=== PATIENT | female | born 1970 | race Caucasian/White ===

== ENCOUNTER 2023-09-26 11:31 | Inpatient (IN) | payer BC ==
--- OUTSIDE RECORDS SUMMARY | 2023-09-26 11:35 | XMS REPORT | Continuity of Care Document ---
Author Name Unknown Address [address] [place] [address] thconnect Address [address] [place] [address] [place] [id number] Care Team Providers Care Publisher Assistant Name Role Phone [email or web address] Attending Clinician Unavaila ble [email or web address] Admitting Clinician Unavaila ble Encounters Start Date/Time End Date/Time Encounter Type Admission Type Attending Clinicians Care Facility Care Department Encounter ID Source 2023-07-31 00:00:00 2023-07-31 00:00:00 Outpatient [email or web address] [facility] [id number] [facility]
[2023-09-26] MEDS ORDERED: VANCOMYCIN 1 GM/VIAL ONE (12:08)
[2023-09-26] MEDS ORDERED: CEFEPIME 2 GM VIAL ONE (12:09)
[2023-09-26] MEDS ORDERED: NA CHLORIDE 0.9% 100 ML ONE (12:09)
[2023-09-26] MEDS ORDERED: NA CHLORIDE 0.9% 250 ML ONE (12:09)
[2023-09-26 12:14] LABS: Absolute Lymphocytes (CBC) 2.1 K/uL (0.7-4.9); Hematocrit 37.3 % (36.0-45.0); Lymphocytes % 19.7 % (15.3-44.8); MCV 80.4 fL (80-100); MPV 7.6 fL (7.6-11.3); Platelets 224 thou/uL (152-406); RBC Red Blood Cell Count 4.64 M/uL (3.86-4.86)
[2023-09-26 12:33] LABS: Albumin 3.1 g/dL (3.4-5.0); Bilirubin Total 0.5 mg/dL (0.2-1.0); Potassium 3.8 mEq/L (3.5-5.1); Protein, Total 7.6 g/dL (6.4-8.2)
--- NOTE | 2023-09-26 14:47 | RAD REPORT ---
EXAM DESCRIPTION: RAD - Foot Right 3 View - 09/26/2023 1:09 pm CLINICAL HISTORY: diabetic wound COMPARISON: No comparisons TECHNIQUE: Right foot, 3 views. FINDINGS: Soft tissue swelling and locules of gas along the first interdigital web, and along the so ft tissues of the second digit. No fracture, osseous lucencies, dislocation or periosteal reaction. Osseous remodeling with well alcira icated margins at the tuft of the first digit distal phalanx, could be of chronic nature. Moderate calcaneal spur. [id number] midfoot degenerative changes. No air or foreign body in the soft tissues. IMPRESSION: Soft tissue swelling and gas centered around the second digit as above concerning for ce llulitis. No adjacent osseous lucencies are observed, however MRI of the foot would provide improved sensitivity for osteomyelitis evaluation if clinically indicated. Osseous remodeling with well corticated margins at the tuft of the first digit distal phalanx, could be of chronic nature.
--- NOTE | 2023-09-26 15:49 | ER ---
Nurse's Notes [facility] Name: Cami Vences Age: 53 yrs Sex: Female : 1970 Arrival Date: 09/26/2023 Time: 11:31 Bed 19 Private MD: Diagnosis: Cellulitis to right foot Presentation: 09/26 11:46 Chief complaint: Patient states: "I'VE BEEN SEEING DR SEO FOR MY TOE, BUT TODAY IT'S ll1 BLEEDING." SEEN BY PODIATRY WED, NOW WORSE. Coronavirus screen: At this time, the client does not indicate any symptoms associated with coronavirus-19. Ebola Screen: No symptoms or risks identified at this time. Initial Sepsis Screen: Does the patient meet any 2 criteria? No. Patient's initial sepsis screen is negative. Does the patient have a suspected source of infection? No. Patient's initial sepsis screen is negative. Risk Assessment: Do you want to hurt yourself or someone else? Patient reports no desire to harm self or others. Onset of symptoms is unknown. 11:46 Method Of Arrival: Wheelchair ll1 11:46 Acuity: BERTA 4 ll1 Triage Assessment: 11:46 General: Appears in no apparent distress. Behavior is calm, cooperative, appropriate ll1 for age. Pain: Complains of pain in right foot. Historical: - Allergies: 11:45 Clindamycin; ll1 11:45 Erythromycin; ll1 11:45 Lipitor; ll1 11:45 Naproxen; ll1 11:45 Voltaren; ll1 - PMHx: 11:45 Diabetes mellitus; Hypertensive disorder; Hypercholesterolemia; ll1 - Immunization history:: Adult Immunizations up to date. - Social history:: Smoking status: unknown. - Family history:: not pertinent. Screenin:15 [facility] ED Fall Risk Assessment (Adult) History of falling in the last 3 months, kc6 including since admission No falls in past 3 months (0 pts) Confusion or Disorientation No (0 pts) Intoxicated or Sedated No (0 pts) Impaired Gait Yes (1 pt) Mobility Assist Device Used No (0 pt) Altered Elimination No (0 pt) Score/Fall Risk Level 0 - 2 = Low Risk. Abuse screen: Denies threats or abuse. Denies injuries from another. Nutritional screening: No deficits noted. Tuberculosis screening: No symptoms or risk factors identified. Assessment: 12:16 General: Appears in no apparent distress. comfortable, well groomed, well developed, kc6 Behavior is calm, cooperative, appropriate for age. Pain: Denies pain. Neuro: Level of Consciousness is awake, alert, obeys commands, Oriented to person, place, time, situation, Appropriate for age. Cardiovascular: Capillary refill < 3 seconds. Respiratory: Airway is patent Trachea midline Respiratory effort is even, unlabored, Respiratory pattern is regular, symmetrical. GI: No signs and/or symptoms were reported involving the gastrointestinal system. : No signs and/or symptoms were reported regarding the genitourinary system. EENT: No signs and/or symptoms were reported regarding the EENT system. Derm: Skin is pink, warm \\T\\ dry. Wound noted. Musculoskeletal: No signs and/or symptoms reported regarding the musculoskeletal system. Circulation, motion, and sensation intact. Capillary refill < 3 seconds, Range of motion: intact in all extremities. 13:20 Reassessment: Patient appears in no apparent distress at this time. No changes from kc6 previously documented assessment. Patient and/or family updated on plan of care and expected duration. Pain level reassessed. Patient is alert, oriented x 3, equal unlabored respirations, skin warm/dry/pink. 14:24 Reassessment: Patient appears in no apparent distress at this time. No changes from kc6 previously documented assessment. Patient and/or family updated on plan of care and expected duration. Pain level reassessed. Patient is alert, oriented x 3, equal unlabored respirations, skin warm/dry/pink. 15:01 Reassessment: Patient appears in no apparent distress at this time. No changes from kc6 previously documented assessment. Patient and/or family updated on plan of care and expected duration. Pain level reassessed. Patient is alert, oriented x 3, equal unlabored respirations, skin warm/dry/pink. 15:48 Reassessment: Patient appears in no apparent distress at this time. No changes from kc6 previously documented assessment. Patient and/or family updated on plan of care and expected duration. Pain level reassessed. Patient is alert, oriented x 3, equal unlabored respirations, skin warm/dry/pink. 16:48 Reassessment: Patient appears in no apparent distress at this time. No changes from kc6 previously documented assessment. Patient and/or family updated on plan of care and expected duration. Pain level reassessed. Patient is alert, oriented x 3, equal unlabored respirations, skin warm/dry/pink. 23:44 Reassessment: 1st attempt at giving report to Roc PASTRANA. Unable to take report at this la4 time. Will call back for report in 5 minutes. Will await return call for report. Neuro:. Vital Signs: 11:46 BP 154 / 77; Pulse 84; Resp 16; Temp 97.9; Pulse Ox 97% ; ll1 13:20 BP 111 / 58; Pulse 75; Resp 16 S; Pulse Ox 98% on R/A; kc6 14:24 BP 124 / 61; Pulse 76; Resp 18 S; Pulse Ox 98% on R/A; kc6 15:01 BP 112 / 48; Pulse 73; Resp 19 S; Pulse Ox 98% on R/A; kc6 15:48 BP 128 / 67; Pulse 80; Resp 17 S; Pulse Ox 99% on R/A; kc6 17:10 BP 111 / 93; Pulse 83; Resp 16 S; Pulse Ox 99% on R/A; kc6 19:45 BP 125 / 71; Pulse 88; Resp 20; Pulse Ox 96% ; la4 20:00 BP 129 / 67; Pulse 98; Resp 20; Pulse Ox 100% on R/A; la4 20:45 BP 119 / 65; Pulse 86; Pulse Ox 95% ; la4 21:45 BP 114 / 53; Pulse 87; Pulse Ox 96% ; la4 22:45 BP 108 / 52; Pulse 87; Pulse Ox 98% ; la4 [place] Coma Score: 20:00 Eye Response: spontaneous(4). Motor Response: obeys commands(6). Verbal Response: la4 oriented(5). Total: 15. 22:45 Eye Response: spontaneous(4). Motor Response: obeys commands(6). Verbal Response: la4 oriented(5). Total: 15. ED Course: 11:34 Patient arrived in ED. ts1 11:35 Remy Edwards MD is Attending Physician. rt 11:46 Arm band placed on. ll1 11:47 Triage completed. ll1 11:58 Cindy Cabrajal, RN is Primary Nurse. kc6 12:15 CMP Sent. kc6 12:15 CBC with Diff Sent. kc6 12:15 Inserted saline lock: 20 gauge in right antecubital area, using aseptic technique. kc6 Blood collected. Patient maintains SpO2 saturation greater than 95% on room air. 12:16 Patient has correct armband on for positive identification. Bed in low position. Call kc6 light in reach. Side rails up X 1. Adult w/ patient. Client placed on continuous cardiac and pulse oximetry monitoring. NIBP monitoring applied. 13:11 Foot Right 3 View XRAY In Process Unspecified. EDMS 15:48 Aby Concepcion MD is Hospitalizing Provider. rt 17:10 No provider procedures requiring assistance completed. Patient admitted, IV remains in kc6 place. 23:06 IV discontinued, intact, bleeding controlled, No redness/swelling at site. Pressure kmf dressing applied. 23:44 Provided Education on: plan of care. la4 23:54 Inserted saline lock: 20 gauge in left hand, using aseptic technique. Blood collected. kmf Administered Medications: 12:15 Drug: Cefepime IVPB 2 grams IVPB at 200 ml/hr once over 30 mins; (mix in NS 100 mL) kc6 Route: IVPB; Rate: 200 ml/hr; Infused Over: 30 mins; Site: right antecubital; 12:51 Follow up: Response: No adverse reaction; IV Status: Completed infusion; IV Intake: kc6 100ml 12:57 Drug: vancoMYCIN IVPB 1 grams IVPB once over 2 hrs Route: IVPB; Infused Over: 2 hrs; kc6 Site: right antecubital; 15:05 Follow up: Response: No adverse reaction; IV Status: Completed infusion; IV Intake: kc6 250ml Medication: 17:10 VIS not applicable for this client. kc6 Intake: 12:51 IV: 100ml; Total: 100ml. kc6 15:05 IV: 250ml; Total: 350ml. kc6 Output: 20:00 Urine: 600ml (Voided); Total: 600ml. la4 Outcome: 15:49 Decision to Hospitalize by Provider. rt 17:10 Admitted to ER Hold. Please see [facility] for further documentation. kc6 17:10 Condition: good 17:10 Instructed on the need for admit, 23:59 Admitted to Tele room 225, Report called to Roc PASTRANA la4 23:59 Instructed on 09/27 00:45 Patient left the ED. la4 Signatures: Dispatcher [employer] EDRitesh Pop RN RN ll1 Cindy Carbajal RN RN kc6 Remy Edwards MD MD rt Simpson, Tanya, PAS PAS ts1 Gaye Malloy kmf Armin Stevens RN RN la4 Corrections: (The following items were deleted from the chart) 09/26 23:54 23:54 IV discontinued, intact, bleeding controlled, No redness/swelling at site. kmf Pressure dressing applied, kmf
--- NOTE | 2023-09-26 15:50 | EDPHYS ---
Physician Documentation [facility] Name: Cami Vences Age: 53 yrs Sex: Female : 1970 Arrival Date: 09/26/2023 Time: 11:31 Bed 19 Private MD: ED Physician Remy Edwards HPI: 09/26 13:22 This 53 yrs old Female presents to ER via Wheelchair with complaints of Infected toe. rt 13:22 Patient presents to the ED with a wound to the right foot, states that she has been rt having workup done by a senior principal software engineer, states that which woke up this morning, noticed redness to her foot as well as a blackness to the right third toe. This is new compared to yesterday. Denies other acute complaints, symptoms are moderate in severity, no other aggravating relieving factors.. Historical: - Allergies: 11:45 Clindamycin; ll1 11:45 Erythromycin; ll1 11:45 Lipitor; ll1 11:45 Naproxen; ll1 11:45 Voltaren; ll1 - PMHx: 11:45 Diabetes mellitus; Hypertensive disorder; Hypercholesterolemia; ll1 - Immunization history:: Adult Immunizations up to date. - Social history:: Smoking status: unknown. - Family history:: not pertinent. ROS: 13:22 Constitutional: Negative for fever, chills, and weight loss, Neck: Negative for injury, rt pain, and swelling, Cardiovascular: Negative for chest pain, palpitations, and edema, Respiratory: Negative for shortness of breath, cough, wheezing, and pleuritic chest pain, Abdomen/GI: Negative for abdominal pain, nausea, vomiting, diarrhea, and constipation, Neuro: Negative for headache, weakness, numbness, tingling, and seizure, Psych: Negative for depression, anxiety, suicide ideation, homicidal ideation, and hallucinations, 13:22 MS/extremity: Positive for Warmth, foot wound, 13:22 Skin: Positive for erythema, Wound, Exam: 13:22 Constitutional: This is a well developed, well nourished patient who is awake, alert, rt and in no acute distress. Head/Face: Normocephalic, atraumatic. Chest/axilla: Normal chest wall appearance and motion. Nontender with no deformity. No lesions are appreciated. Cardiovascular: Regular rate and rhythm with a normal S1 and S2. No gallops, murmurs, or rubs. Normal PMI, no JVD. No pulse deficits. Respiratory: Lungs have equal breath sounds bilaterally, clear to auscultation and percussion. No rales, rhonchi or wheezes noted. No increased work of breathing, no retractions or nasal flaring. Abdomen/GI: Soft, non-tender, with normal bowel sounds. No distension or tympany. No guarding or rebound. No evidence of tenderness throughout. Neuro: Awake and alert, GCS 15, oriented to person, place, time, and situation. Cranial nerves II-XII grossly intact. Motor strength 5/5 in all extremities. Sensory grossly intact. Cerebellar exam normal. Normal gait. 13:22 Musculoskeletal/extremity: Apparent dry gangrene to the right third toe, proximal erythema noted pulses are intact. Vital Signs: 11:46 BP 154 / 77; Pulse 84; Resp 16; Temp 97.9; Pulse Ox 97% ; ll1 13:20 BP 111 / 58; Pulse 75; Resp 16 S; Pulse Ox 98% on R/A; kc6 14:24 BP 124 / 61; Pulse 76; Resp 18 S; Pulse Ox 98% on R/A; kc6 15:01 BP 112 / 48; Pulse 73; Resp 19 S; Pulse Ox 98% on R/A; kc6 15:48 BP 128 / 67; Pulse 80; Resp 17 S; Pulse Ox 99% on R/A; kc6 17:10 BP 111 / 93; Pulse 83; Resp 16 S; Pulse Ox 99% on R/A; kc6 19:45 BP 125 / 71; Pulse 88; Resp 20; Pulse Ox 96% ; la4 20:00 BP 129 / 67; Pulse 98; Resp 20; Pulse Ox 100% on R/A; la4 20:45 BP 119 / 65; Pulse 86; Pulse Ox 95% ; la4 21:45 BP 114 / 53; Pulse 87; Pulse Ox 96% ; la4 22:45 BP 108 / 52; Pulse 87; Pulse Ox 98% ; la4 [place] Coma Score: 20:00 Eye Response: spontaneous(4). Motor Response: obeys commands(6). Verbal Response: la4 oriented(5). Total: 15. 22:45 Eye Response: spontaneous(4). Motor Response: obeys commands(6). Verbal Response: la4 oriented(5). Total: 15. MDM: 11:50 Patient medically screened. rt 17:50 Differential Diagnosis Cellulitis, osteomyelitis. Data reviewed: vital signs, nurses rt notes, lab test result(s), radiologic studies. Consideration of Admission/Observation Patient was admitted/placed on observation. Management of patient was discussed with the following: Hospitalist: Agrees to admit. I considered the following discharge prescriptions or medication management in the emergency department Medications were administered in the Emergency Department. See MAR. Independent interpretation of the following test(s) in the Emergency Department X-Ray: My interpretation is No fracture seen on interpretation of x-ray images. Care significantly affected by the following chronic conditions: Diabetes. Counseling: I had a detailed discussion with the patient and/or guardian regarding the historical points, exam findings, and any diagnostic results supporting the discharge/admit diagnosis, lab results, radiology results, the need for further work-up and treatment in the hospital. Response to treatment: There is no appreciated change of the patient's symptoms at this time. 09/26 11:55 Order name: CBC with Diff; Complete Time: 12:35 rt 09/26 11:55 Order name: CMP; Complete Time: 12:35 rt 09/26 19:03 Order name: Basic Metabolic Panel EDMS 09/26 19:03 Order name: Basic Metabolic Panel EDMS 09/26 19:03 Order name: CBC with Automated Diff EDMS 09/26 19:03 Order name: CBC with Automated Diff EDMS 09/26 19:04 Order name: PTT, Activated Partial Thromb EDMS 09/26 19:04 Order name: PTT, Activated Partial Thromb EDMS 09/26 19:05 Order name: Liver (Hepatic) Function EDMS 09/26 19:05 Order name: Liver (Hepatic) Function EDMS 09/26 19:05 Order name: PTT, Activated Partial Thromb EDMS 09/26 19:07 Order name: Procalcitonin EDMS 09/26 19:10 Order name: Lipid Profile EDMS 09/27 00:15 Order name: Glucose, Ancillary Testing EDMS 09/26 11:55 Order name: Foot Right 3 View XRAY; Complete Time: 14:48 rt 09/26 19:10 Order name: Echo with Doppler EDMS 09/26 19:10 Order name: Foot Right Wo Cont EDMS 09/26 19:10 Order name: Lower Extremity Artery Uni Ltd EDMS 09/26 19:03 Order name: CONS Physician Consult EDMS 09/26 19:03 Order name: CONS Physician Consult EDMS Administered Medications: 12:15 Drug: Cefepime IVPB 2 grams IVPB at 200 ml/hr once over 30 mins; (mix in NS 100 mL) kc6 Route: IVPB; Rate: 200 ml/hr; Infused Over: 30 mins; Site: right antecubital; 12:51 Follow up: Response: No adverse reaction; IV Status: Completed infusion; IV Intake: kc6 100ml 12:57 Drug: vancoMYCIN IVPB 1 grams IVPB once over 2 hrs Route: IVPB; Infused Over: 2 hrs; kc6 Site: right antecubital; 15:05 Follow up: Response: No adverse reaction; IV Status: Completed infusion; IV Intake: kc6 250ml Disposition Summary: 09/26/23 15:49 Hospitalization Ordered Notes: Hospitalization Status: Inpatient Admission rt Provider: Aby Concepcion rt Condition: Stable rt Problem: new rt Symptoms: are unchanged rt Bed/Room Type: Standard rt Location: Telemetry/MedSurg (Inpatient)(09/26/23 22:03) rv1 Room Assignment: 225(09/26/23 22:03) rv1 Diagnosis - Cellulitis to right foot rt Forms: - Medication Reconciliation Form rt - SBAR form rt - Leadership Thank You Letter rt Signatures: Dispatcher [employer] Ben Matthews em1 Ritesh Pathak RN RN ll1 Cindy Carbajal RN RN kc6 Remy Edwards MD MD rt Padma Rizo rv1 Corrections: (The following items were deleted from the chart) 16:48 15:49 Telemetry/MedSurg (Inpatient) rt em1 16:48 15:49 rt em1 22:01 16:48 [facility] ER HOLD em1 rv1 22:01 16:48 ERHOLD- em1 rv1 22:03 22:01 Telemetry/MedSurg (observation) rv1 rv1 22:03 22:01 225 rv1 rv1
[2023-09-26] MEDS ORDERED: ONDANSETRON 4 MG/2 ML VIAL IV PRN (18:55)
[2023-09-26] MEDS ORDERED: HYDROMORPHONE HCL 0.5 MG/0.5 ML INJ IV PRN (18:55)
[2023-09-26] MEDS ORDERED: ACETAMINOPHEN 500 MG TAB PO PRN (18:55)
[2023-09-26] MEDS ORDERED: VANCOMYCIN 1 GM in NA CHLORIDE 0.9% 250 ML IVPB SCH (19:00)
--- NOTE | 2023-09-26 19:05 | P.HP ---
Certification for Inpatient Patient admitted to: Inpatient With expected LOS: >2 Midnights Patient will require the following post-hospital care: None Practitioner: I am a practitioner with admitting privileges, knowledge of patient current condition, hospital course, and medical plan of care. Services: Services provided to patient in accordance with Admission requirements found in Title 42 Section 412.3 of the Code of Federal Regulations Patient History Date of Service: 09/26/23 Reason for admission: RIGHT 2ND TOE ISCHEMIA History of Present Illness: Patient is a 53-year-old female who came to the hospital with gangrenous 2nd toe. Patient still have been black for about 2-3 days. She had significant erythema about 2 weeks ago. She was started on antibiotics. It was not getting any better. She was not sure exactly why was discolored but since it was getting worse she came into the ER. She said this been bluish black for about 2-3 days. Patient may most likely had an embolic phenomenon. We will go ahead and put her on heparin. Started on antibiotics. Will consult Podiatry. Cardiology consultation as well. Allergies clindamycin Allergy (Verified 06/24/23 04:49) Itching/Hives/Rash erythromycin base Allergy (Verified 06/24/23 04:49) Itching/Hives/Rash atorvastatin [From Lipitor] Adverse Reaction (Verified 06/24/23 04:49) Nausea/Vomiting diclofenac [From Voltaren] Adverse Reaction (Verified 06/24/23 04:49) Nausea/Vomiting naproxen Adverse Reaction (Verified 06/24/23 04:49) Nausea/Vomiting Home Medications: Aspirin 81 mg PO BEDTIME 06/23/23 Gabapentin 400 mg PO TID 06/23/23 Glimepiride 4 mg PO BID 06/23/23 Losartan Potassium 50 mg PO DAILY 06/23/23 Metformin HCl 500 mg PO BID 06/23/23 [place]-3/Dha/Epa/Fish Oil [Fish Oil 1,000 mg Softgel] 1 each PO DAILY 06/23/23 Rosuvastatin Calcium 20 mg PO BEDTIME 06/23/23 Calcium Citrate/Vitamin D3 [Calcium Citrate - Vit D Tablet] 1 each PO DAILY 09/27/23 Cholecalciferol (Vitamin D3) [Vitamin D 5,000 Iu Cap] 5,000 unit PO DAILY 09/27/23 Magnesium Oxide [Magnesium] 250 mg PO DAILY 09/27/23 Omeprazole 20 mg PO DAILY 09/27/23 Zinc Amino Acid Chelate [Zinc] 50 mg PO DAILY 09/27/23 - Past Medical/Surgical History Diabetic: Yes -: Hypertension -: Diabetes type 2 -: Hyperlipidemia - Family History Father Family History: Reviewed- Non-Contributory - Social History Smoking Status: Former smoker Alcohol use: No CD- Drugs: No Caffeine use: No Review of Systems 10-point ROS is otherwise unremarkable Physical Examination - Vital Signs Temperature: 98 F Blood Pressure: 110/80 Pulse: 80 Respirations: 19 Pulse Ox (%): 98 - Physical Exam General: Alert, In no apparent distress, Oriented x3 HEENT: Atraumatic, PERRLA, Mucous membr. moist/pink, EOMI, Sclerae nonicteric Neck: Supple, 2+ carotid pulse no bruit, No LAD, Without JVD or thyroid abnormality Respiratory: Clear to auscultation bilaterally, Normal air movement Cardiovascular: Regular rate/rhythm, Normal S1 S2, Abnormal pulses Gastrointestinal: Normal bowel sounds, No tenderness Musculoskeletal: No tenderness Integumentary: Tenderness/swelling, Erythema, Warmth, Cyanosis Neurological: Normal gait, Normal speech, Normal strength at 5/5 x4 extr, Normal tone, Sensation intact, Cranial nerves 3-12 intact, Normal affect Lymphatics: No axilla or inguinal lymphadenopathy - Studies Laboratory Data (last 24 hrs) 09/26/23 09/26/23 12:06 12:06 WBC 10.80 Hgb 12.7 Hct 37.3 Plt Count 224 Sodium 133 L Potassium 3.8 BUN 11 Creatinine 0.71 Glucose 328 H Total Bilirubin 0.5 AST 7 L ALT 12 L Alkaline Phosphatase 96 Assessment & Plan - Problems (Diagnosis) (1) Dry gangrene Current Visit: Yes Status: Acute (2) Hyperlipidemia associated with type 2 diabetes mellitus Current Visit: Yes Status: Acute (3) Hypertension Current Visit: Yes Status: Acute (4) Osteomyelitis of second toe of right foot Current Visit: Yes Status: Acute (5) Peripheral arterial disease Current Visit: Yes Status: Acute - Plan Plan: 1. Patient to the OR for amputation of 2nd toe. Appreciate Podiatry consultation 2. Continue IV antibiotics 3. Continue heparin 4. Arterial Doppler 5. strict blood pressure and blood sugar control 6. Continue with anti-platelet therapy and statin therapy 7. Gi DVT prophylaxis Discharge Plan: Home Plan to discharge in: Greater than 2 days - Advance Directives Does patient have a Living Will: No Does patient have a Durable POA for Healthcare: No - Code Status/Comfort Care Code Status Assessed: Yes Code Status: Full Code Critical Care: No Time Spent Managing PTS Care (In Minutes): 45
[2023-09-26] MEDS ORDERED: ASPIRIN EC 81 MG TAB PO ONE (19:08)
[2023-09-26] MEDS ORDERED: Levofloxacin 750mg IV 750 MG/150 ML BAG IV SCH (20:00)
[2023-09-27 00:31] VITALS: BMI 31.2
[2023-09-27] MEDS ORDERED: ASPIRIN 81 MG CHEWABLE TABLET ONE (01:19)
[2023-09-27] MEDS ORDERED: VANCOMYCIN 1 GM/VIAL ONE (01:19)
[2023-09-27] MEDS ORDERED: VANCOMYCIN 500 MG/VIAL ONE (01:21)
[2023-09-27] MEDS ORDERED: NA CHLORIDE 0.9% 0 ML ONE ×2 (01:21→12:31)
[2023-09-27] MEDS: GABAPENTIN 400 MG CAP PO SCH ×4 (01:25→20:18)
[2023-09-27] MEDS ORDERED: ASPIRIN EC 81 MG TAB PO ONE (01:27)
[2023-09-27] MEDS: NA CHLORIDE 0.9% 1,000 ML IV SCH ×3 (01:27→20:15)
[2023-09-27 02:11] LABS: Protime INR 1.26
[2023-09-27] MEDS: HEPARIN/D5W 25,000 UNIT/500 ML BAG IV SCH (02:28)
[2023-09-27 07:14] LABS: Absolute Lymphocytes (CBC) 2.9 K/uL (0.7-4.9); Hematocrit 34.5 % (36.0-45.0); Lymphocytes % 26.9 % (15.3-44.8); MCV 80.3 fL (80-100); MPV 7.7 fL (7.6-11.3); Platelets 220 thou/uL (152-406); RBC Red Blood Cell Count 4.29 M/uL (3.86-4.86)
[2023-09-27 07:36] LABS: ALT/SGPT 11 U/L (13-56); Albumin 2.6 g/dL (3.4-5.0); Alkaline Phosphatase 83 U/L (45-117); BUN Blood Urea Nitrogen 10 mg/dL (7-18); Bicarbonate 25 mEq/L (21-32); Bilirubin Direct 0.1 mg/dL (0-0.2); Bilirubin Indirect, Calculated 0.4 mg/dL (0.2-0.8); Bilirubin Total 0.5 mg/dL (0.2-1.0); Glomerular Filtration Rate 108 ml/min (=/>90); Glucose Level 171 mg/dL (74-106); Potassium 3.8 mEq/L (3.5-5.1); Protein, Total 7.2 g/dL (6.4-8.2); Sodium Level 137 mEq/L (136-145)
[2023-09-27 07:38] LABS: AST/SGOT < 4 U/L (15-37)
--- NOTE | 2023-09-27 07:54 | P.CNS ---
Date of Consult: 09/26/23 Reason for Consult: PAD Requesting Physician: Aby Concepcion Chief Complaint: RIGHT 2ND TOE ISCHEMIA History of Present Illness: Ms. Vences is a 53 yo patient with a past medical history of hypertension, non- insulin dependant diabetes, and peripheral arterial disease who presented to the ED with a necrotic toe to left foot. She does have some history of a right leg fracture remotely that necessitated a humberto filter and a course of Coumadin. She states the filter was removed and she weaned off Coumadin and has taken 81mg Aspirin since. She was admitted last night for IV antibiotics and placed on a Heparin drip Allergies clindamycin Allergy (Verified 06/24/23 04:49) Itching/Hives/Rash erythromycin base Allergy (Verified 06/24/23 04:49) Itching/Hives/Rash atorvastatin [From Lipitor] Adverse Reaction (Verified 06/24/23 04:49) Nausea/Vomiting diclofenac [From Voltaren] Adverse Reaction (Verified 06/24/23 04:49) Nausea/Vomiting naproxen Adverse Reaction (Verified 06/24/23 04:49) Nausea/Vomiting Home medications list reviewed: Yes Home Medications: Aspirin 81 mg PO BEDTIME 06/23/23 Gabapentin 400 mg PO TID 06/23/23 Glimepiride 4 mg PO BID 06/23/23 Losartan Potassium 50 mg PO DAILY 06/23/23 Metformin HCl 500 mg PO BID 06/23/23 [place]-3/Dha/Epa/Fish Oil [Fish Oil 1,000 mg Softgel] 1 each PO DAILY 06/23/23 Rosuvastatin Calcium 20 mg PO BEDTIME 06/23/23 Calcium Citrate/Vitamin D3 [Calcium Citrate - Vit D Tablet] 1 each PO DAILY 09/27/23 Cholecalciferol (Vitamin D3) [Vitamin D 5,000 Iu Cap] 5,000 unit PO DAILY 09/27/23 Magnesium Oxide [Magnesium] 250 mg PO DAILY 09/27/23 Omeprazole 20 mg PO DAILY 09/27/23 Zinc Amino Acid Chelate [Zinc] 50 mg PO DAILY 09/27/23 - Past Medical/Surgical History Diabetic: Yes -: Hypertension -: Diabetes type 2 -: Hyperlipidemia - Social History Smoking Status: Current every day smoker, Unknown if ever smoked Smoking therapy provided: Yes Patient receptive to therapy: Yes Alcohol use: No CD- Drugs: No Caffeine use: Yes Place of Residence: Home Review of Systems 10-point ROS is otherwise unremarkable Respiratory: As per HPI Cardiovascular: As per HPI Integumentary: As per HPI Physical Examination Temp Pulse Resp BP Pulse Ox 99.6 F 82 16 113/52 L 96 09/27/23 04:00 09/27/23 04:00 09/27/23 04:00 09/27/23 04:00 09/27/23 04:00 General: Alert, In no apparent distress, Oriented x3 HEENT: Atraumatic, Normocephalic, PERRLA Neck: Supple, 2+ carotid pulse no bruit, JVD not distended Respiratory: Normal air movement Cardiovascular: No edema, Regular rate/rhythm Capillary refill: <2 Seconds Gastrointestinal: Normal bowel sounds, Soft and benign Musculoskeletal: No clubbing Integumentary: Other (blackened left third toe) Neurological: Normal speech, Normal tone Lymphatics: No axilla or inguinal lymphadenopathy External genitalia: Deferred Rectal: Deferred Laboratory Data (last 24 hrs) 09/26/23 09/26/23 12:06 12:06 WBC 10.80 Hgb 12.7 Hct 37.3 Plt Count 224 Sodium 133 L Potassium 3.8 BUN 11 Creatinine 0.71 Glucose 328 H Total Bilirubin 0.5 AST 7 L ALT 12 L Alkaline Phosphatase 96 - Problems (1) Hypertension Current Visit: Yes Status: Acute Plan: Continue current antihypertensives (2) Hyperlipidemia associated with type 2 diabetes mellitus Current Visit: Yes Status: Acute Plan: Continue home medications as appropriate Low fat/high protein diet (albumin low) (3) Diabetes 1.5, managed as type 2 Current Visit: Yes Status: Acute Plan: Manage with insulin in patient tight blood sugar control (4) Peripheral arterial disease Current Visit: Yes Status: Acute Plan: Continue Heparin drip for now Smoking Cessation literature, education
[2023-09-27] MEDS: VANCOMYCIN 1.75 GM in NA CHLORIDE 0.9% 500 ML IVPB SCH (08:00)
[2023-09-27] MEDS ORDERED: VANCOMYCIN 1.5 GM in NA CHLORIDE 0.9% 500 ML IVPB SCH ×3 (08:00)
[2023-09-27] MEDS: ASPIRIN EC 81 MG TAB PO SCH (09:00)
[2023-09-27] MEDS: LOSARTAN POTASSIUM 50 MG TABLET PO SCH (09:13)
[2023-09-27] MEDS ORDERED: INFLUENZA VACCINE (for 6+ mo) 0.5 ML DOSE IMVAC ONE (12:00)
[2023-09-27] MEDS: PIPER TAZO 3.375 GM in NA CHLORIDE 0.9% 100 ML IV SCH ×2 (12:00→20:18)
[2023-09-27] MEDS ORDERED: ONDANSETRON 4 MG/2 ML VIAL ONE (12:46)
[2023-09-27] MEDS ORDERED: FENTANYL CITR 100 MCG/2 ML ONE (12:46)
[2023-09-27] MEDS ORDERED: propofoL 200 MG/20 ML VIAL IV ONE (12:46)
[2023-09-27] MEDS ORDERED: MIDAZOLAM HCL 2 MG/2 ML INJ ONE (12:46)
[2023-09-27] MEDS ORDERED: LIDOCAINE 2% MPF 5 ML VIAL ONE (12:46)
[2023-09-27] MEDS ORDERED: BUPIVACAINE 0.5% PF 10 ML VIAL ONE (12:47)
[2023-09-27] MEDS ORDERED: LIDOCAINE 1% 20 ML MDV ONE (12:47)
--- NOTE | 2023-09-27 12:56 | P.CNS ---
Date of Consult: 09/27/23 Reason for Consult: abscess right foot Requesting Physician: Aby Concepcion Chief Complaint: RIGHT 2ND TOE ISCHEMIA Allergies clindamycin Allergy (Verified 06/24/23 04:49) Itching/Hives/Rash erythromycin base Allergy (Verified 06/24/23 04:49) Itching/Hives/Rash atorvastatin [From Lipitor] Adverse Reaction (Verified 06/24/23 04:49) Nausea/Vomiting diclofenac [From Voltaren] Adverse Reaction (Verified 06/24/23 04:49) Nausea/Vomiting naproxen Adverse Reaction (Verified 06/24/23 04:49) Nausea/Vomiting Home Medications: Aspirin 81 mg PO BEDTIME 06/23/23 Gabapentin 400 mg PO TID 06/23/23 Glimepiride 4 mg PO BID 06/23/23 Losartan Potassium 50 mg PO DAILY 06/23/23 Metformin HCl 500 mg PO BID 06/23/23 [place]-3/Dha/Epa/Fish Oil [Fish Oil 1,000 mg Softgel] 1 each PO DAILY 06/23/23 Rosuvastatin Calcium 20 mg PO BEDTIME 06/23/23 Calcium Citrate/Vitamin D3 [Calcium Citrate - Vit D Tablet] 1 each PO DAILY 09/27/23 Cholecalciferol (Vitamin D3) [Vitamin D 5,000 Iu Cap] 5,000 unit PO DAILY Magnesium Oxide [Magnesium] 250 mg PO DAILY 09/27/23 Omeprazole 20 mg PO DAILY 09/27/23 Zinc Amino Acid Chelate [Zinc] 50 mg PO DAILY 09/27/23 - Past Medical/Surgical History Diabetic: Yes -: Hypertension -: Diabetes type 2 -: Hyperlipidemia - Social History Smoking Status: Current every day smoker, Unknown if ever smoked Alcohol use: No CD- Drugs: No Caffeine use: Yes Place of Residence: Home Review of Systems 10-point ROS is otherwise unremarkable Physical Examination Temp Pulse Resp BP Pulse Ox 97.0 F 82 12 112/54 L 97 09/27/23 12:00 09/27/23 04:00 09/27/23 12:00 09/27/23 12:00 09/27/23 12:00 General: Alert, In no apparent distress, Oriented x3 Cardiovascular: No edema, Abnormal pulses (0/4 dp/pt pulses right foot) Capillary refill: >2 Seconds Musculoskeletal: No clubbing, No swelling, No contractures, No erythema, No tenderness, No warmth Integumentary: No rashes, Erythema, Warmth, Cyanosis, Other (right second digit demonstrates wet gangrene with edema and erythema to right forefoot, foul odor noted) Neurological: Abnormal sensation Imagings Data: xray right foot consistent with osteomyelitis right second toe with gas present - Problems (1) Osteomyelitis of second toe of right foot Current Visit: Yes Status: Acute (2) Abscess of right foot including toes Current Visit: Yes Status: Acute (3) Hyperlipidemia associated with type 2 diabetes mellitus Current Visit: Yes Status: Acute (4) Peripheral arterial disease Current Visit: Yes Status: Acute Conclusions/Impression: Due to presence of gas in the tissues the patient will be taken to the OR this afternoon for amputation of second toe with incision and drainage of right foot and all indicated procedures. Patient will probably need vascular maximization to the right foot per cardiology Physician Review: Patient Assessed, Agree with Above Assessment and Plan Critical Care: Yes Time Spent Managing Pts care (In Minutes): 30
[2023-09-27] MEDS ORDERED: EPHEDRINE SULF 50 MG/ML VIAL ONE (13:16)
--- NOTE | 2023-09-27 13:41 | P.OP ---
Preoperative diagnosis: right second digit wet gangrene with abscess Postoperative diagnosis: same Primary procedure: right second digit amputation with incision and drainage of foot Anesthesia: general Estimated blood loss: 20cc Specimen: right second digit Findings: wet gangrene right second digit Operative Technique: as dictated Complications: None Transferred to: Recovery Room Condition: Good
--- NOTE | 2023-09-27 13:50 | RAD REPORT ---
EXAM DESCRIPTION: MRI - Foot Right Wo Cont - 09/27/2023 11:11 am CLINICAL HISTORY: OSTEOMYELITIS COMPARISON: Foot Right 3 View dated 09/26/2023 TECHNIQUE: Multiplanar multisequence MRI of the right foot, obtained without IV contrast. FINDINGS: Signal abnormalities with low T1 and increased T2 signal involving the mid to distal aspec t of the second digit proximal phalanx and the entirety of the second digit middle phalanx. Adjacent soft tissue T2 signal abnormality as well as foci of susceptibility signal abnormality in the soft ti ssues suggesting gas, similar to the finding on recent radiographs. Similar signal abnormalities throughout the center shaft and base of the second metatarsal. Linear T1 hypointense signal near the base oriented coronally, corresponding to some fluid signal abnormality, suggests a fracture of indeterminate age. No appreciable fluid collections within limits of noncontrast evaluation. Moderately pronounced soft tissue swelling along the dorsum and deep muscles of the foot. Moderate to advanced degenerative diaz ges throughout the midfoot. IMPRESSION: Signal abnormality suggestive of osteomyelitis involving the second digit middle and pro ximal phalanges. Central shaft and base of second metatarsal signal abnormalities, could also relate to osteomyelitis, however may relate to a healing fracture given linear T1 hypointense signal at the base. Soft tissue abnormalities as above. No findings to suggest an abnormal fluid collection on noncontras t MRI.
[2023-09-27] MEDS: ROSUVASTATIN 10 MG TAB PO SCH (20:24)
--- NOTE | 2023-09-28 00:08 | OP ---
Surgeon: Shen Briseno Jr, DPM Preoperative Diagnosis: Right second digit wet gangrene with abscess. Postoperative Diagnosis: Right second digit wet gangrene with abscess. Procedure: Right second digit amputation with I and D of the right foot. Pathology: Right toe sent for gross as well as culture sent for aerobic and anaerobic sensitivities. Anesthesia: General. Hemostasis: None. Estimated Blood Loss: Less than 20 cc. Materials: Half-inch iodoform gauze. Injectables: None. Complications: None. Procedure In Detail: The patient was brought into [facility] and placed in the supin e position. The patient was placed under general anesthesia by the anesthesiologist, and the patient was prepped and draped in the usual aseptic manner. Attention was directed to the right second digi t, at which time, a gangrenous right second digit was identified. It was noted to have wet gangrene in nature, foul odor, with erythema extending to the dorsal forefoot. At this time, a racquet type i ncision was made at the base of the second digit extending over the second metatarsal. Skin incision was carried superficial straight to bone. There was noted to be purulence dorsally. This was cultu red for aerobes and anaerobic sensitivities. Next, utilizing a sharp dissection, the right second to e was disarticulated from the second metatarsophalangeal joint and removed from the operative site. At this time, there is necrotic tissue. No odor noted on the lateral medial aspect of the incision. This was all debrided utilizing sharp dissection. Wound was then irrigated with copious amounts of normal sterile saline utilizing a pulse lavage. Any nonviable tissue at that point was then resected as well. Following this, the wound was packed with half-inch iodoform gauze and a sterile dressing consisting of 4x4s, Kerlix, Angel wraps applied to the right lower extremity. The patient tolerated th e procedure and anesthesia well, was transferred from OR to recovery with vital signs stable and neur ovascular status intact. RS/MODL Voice ID: [id number] Report ID: [id number]
[2023-09-28] MEDS: VANCOMYCIN 1.75 GM in NA CHLORIDE 0.9% 500 ML IVPB SCH ×2 (02:14→21:41)
[2023-09-28] MEDS: HEPARIN/D5W 25,000 UNIT/500 ML BAG IV SCH ×2 (03:07→20:04)
[2023-09-28] MEDS: PIPER TAZO 3.375 GM in NA CHLORIDE 0.9% 100 ML IV SCH ×3 (04:36→20:04)
[2023-09-28] MEDS: LOSARTAN POTASSIUM 50 MG TABLET PO SCH (07:42)
[2023-09-28] MEDS: ASPIRIN EC 81 MG TAB PO SCH (07:42)
[2023-09-28] MEDS: GABAPENTIN 400 MG CAP PO SCH ×3 (07:42→21:41)
--- NOTE | 2023-09-28 12:49 | P.PN ---
Subjective Date of Service: 09/28/23 Chief Complaint: RIGHT 2ND TOE ISCHEMIA Subjective: Improving, Doing well Review of Systems 10-point ROS is otherwise unremarkable Physical Examination - Vital Signs Temperature: 98.0 F Blood Pressure: 97/57 Pulse: 74 Respirations: 16 Pulse Ox (%): 96 - Physical Exam General: Alert, In no apparent distress, Oriented x3 Cardiovascular: No edema, Abnormal pulses Capillary refill: <2 Seconds Musculoskeletal: No clubbing, No swelling, No contractures, No erythema, No tenderness, No warmth Integumentary: Diabetic ulcer (Operative site right foot is doing well with granulation tissue present, no purulence, no necrotic tissue) Neurological: Abnormal sensation - Studies Imagings Data: MRI right foot reveals possible osteomyelitis at midshaft/base of second metatarsal. This is not in the direct area of the abscess but will take a metatarsal head bone biopsy intraoperatively tomorrow as patient is scheduled for closure of wound 09/29/23. Awaiting results from arterial doppler Assessment And Plan - Current Problems (Diagnosis) (1) Osteomyelitis of second toe of right foot Current Visit: Yes Status: Acute (2) Abscess of right foot including toes Current Visit: Yes Status: Acute (3) Hyperlipidemia associated with type 2 diabetes mellitus Current Visit: Yes Status: Acute (4) Peripheral arterial disease Current Visit: Yes Status: Acute - Plan 1. Return to OR 09/29/23 for closure of wound and bone biopsy Physician Review: Patient Assessed, Agree with Above Assessment and Plan
--- NOTE | 2023-09-28 13:54 | RAD REPORT ---
EXAM DESCRIPTION: US - Lower Extremity Artery Uni Ltd - 09/27/2023 12:58 pm CLINICAL HISTORY: PAD; TOE ISCHEMIA COMPARISON: No comparisons TECHNIQUE: Right lower extremity arterial Doppler examination was performed with waveform tracing. FINDINGS: Ultrasound was performed as a part of pre-surgical evaluation. Absent flow along the proximal to mid right SFA. Prominent calcific atherosclerotic plaque. Triphasic waveforms along the right [employer]. Monophasic flow at the distal right SFA through dorsalis ped is artery. IMPRESSION: Significant peripheral vascular disease with segmental occlusion along the proximal to m id right SFA. More distally there is reconstitution with monophasic flow.
[2023-09-28] MEDS: NA CHLORIDE 0.9% 1,000 ML IV SCH (17:43)
[2023-09-28] MEDS: ROSUVASTATIN 10 MG TAB PO SCH (21:41)
[2023-09-29] MEDS: PIPER TAZO 3.375 GM in NA CHLORIDE 0.9% 100 ML IV SCH ×3 (04:57→20:28)
--- NOTE | 2023-09-29 06:07 | P.PN ---
Subjective Date of Service: 09/27/23 Subjective: No new changes, No C/O voiced patient going to the operating room today. Review of Systems 10-point ROS is otherwise unremarkable Physical Examination - Vital Signs Temperature: 98 F Blood Pressure: 110/80 Pulse: 80 Respirations: 19 Pulse Ox (%): 98 - Physical Exam General: Alert, In no apparent distress, Oriented x3 HEENT: Atraumatic, PERRLA, EOMI Neck: Supple, JVD not distended Respiratory: Clear to auscultation bilaterally, Normal air movement Cardiovascular: Regular rate/rhythm, Normal S1 S2 Gastrointestinal: Normal bowel sounds, No tenderness Musculoskeletal: No tenderness Integumentary: Skin lesion, Tenderness/swelling, Erythema, Cyanosis Neurological: Normal speech, Normal tone, Normal affect Lymphatics: No axilla or inguinal lymphadenopathy - Studies Medications List Reviewed: Yes Assessment & Plan - Problems (Diagnosis) (1) Dry gangrene Current Visit: Yes Status: Acute (2) Hyperlipidemia associated with type 2 diabetes mellitus Current Visit: Yes Status: Acute (3) Hypertension Current Visit: Yes Status: Acute (4) Osteomyelitis of second toe of right foot Current Visit: Yes Status: Acute (5) Peripheral arterial disease Current Visit: Yes Status: Acute - Plan Plan: Continue with plan of care as mentioned below: 1. Patient to the OR today for amputation of 2nd toe. Appreciate Podiatry consultation 2. Continue IV antibiotics 3. Continue heparin 4. Arterial Doppler 5. strict blood pressure and blood sugar control 6. Continue with anti-platelet therapy and statin therapy 7. Gi DVT prophylaxis - Advance Directives Does patient have a Living Will: No Does patient have a Durable POA for Healthcare: No - Code Status/Comfort Care Code Status: Full Code Physician Review: Patient Assessed, Agree with Above Assessment and Plan
--- NOTE | 2023-09-29 06:09 | P.PN ---
Date of Service: 09/28/23 Subjective Date of Service: 09/27/23 Subjective: No new changes, No C/O voiced patient going to the operating room today. Review of Systems 10-point ROS is otherwise unremarkable Physical Examination - Vital Signs Temperature: 98 F Blood Pressure: 110/80 Pulse: 80 Respirations: 19 Pulse Ox (%): 98 - Physical Exam General: Alert, In no apparent distress, Oriented x3 HEENT: Atraumatic, PERRLA, EOMI Neck: Supple, JVD not distended Respiratory: Clear to auscultation bilaterally, Normal air movement Cardiovascular: Regular rate/rhythm, Normal S1 S2 Gastrointestinal: Normal bowel sounds, No tenderness Musculoskeletal: No tenderness Integumentary: Skin lesion, Tenderness/swelling, Erythema, Cyanosis Neurological: Normal speech, Normal tone, Normal affect Lymphatics: No axilla or inguinal lymphadenopathy - Studies Medications List Reviewed: Yes Assessment & Plan - Problems (Diagnosis) (1) Dry gangrene Current Visit: Yes Status: Acute (2) Hyperlipidemia associated with type 2 diabetes mellitus Current Visit: Yes Status: Acute (3) Hypertension Current Visit: Yes Status: Acute (4) Osteomyelitis of second toe of right foot Current Visit: Yes Status: Acute (5) Peripheral arterial disease Current Visit: Yes Status: Acute - Plan PLAN OF CARE: 1. Patient taken to the OR yesterday for amputation of 2nd toe. Appreciate Podiatry consultation. Plan for closure of that 2nd toe tomorrow morning. Bone biopsy also to be performed to see if patient needs IV antibiotics. Podiatry thinks patient will only need oral antibiotics at discharge. 2. Continue IV antibiotics 3. Continue heparin 4. Arterial Doppler 5. Strict blood pressure and blood sugar control 6. Continue with anti-platelet therapy and statin therapy 7. Gi DVT prophylaxis - Advance Directives Does patient have a Living Will: No Does patient have a Durable POA for Healthcare: No - Code Status/Comfort Care Code Status: Full Code Physician Review: Patient Assessed, Agree with Above Assessment and Plan
--- NOTE | 2023-09-29 07:04 | ECHO ---
HEIGHT: 5 ft 5 in WEIGHT: 187 lb 11.2 oz DATE OF STUDY: 09/27/[address]: Aby Concepcion MD 2-DIMENSIONAL: YES M.MODE: YES DOPPLER: YES COLOR FLOW: YES TDS: PORTABLE: YES DEFINITY: BUBBLE STUDY: DIAGNOSIS: CARDIAC CLEARANCE CARDIAC HISTORY: CATHERIZATION: NO SURGERY: NO PROSTHETIC VALVE: NO PACEMAKER: NO MEASUREMENTS (cm) DIASTOLIC (NORMALS) SYSTOLIC (NORMALS) IVSd 1.0 (0.6-1.2) LA Diam 3.2 (1.9-4.0) LVEF 51% LVIDd 5.3 (3.5-5.7) LVIDs 3.9 (2.0-3.5) %FS 26% LVPWd 1.1 (0.6-1.2) Ao Diam 2.4 (2.0-3.7) 2 DIMENSIONAL ASSESSMENT: RIGHT ATRIUM: NORMAL LEFT ATRIUM: NORMAL RIGHT VENTRICLE: NORMAL LEFT VENTRICLE: LOW NORMAL EJECTION FRACTION TRICUSPID VALVE: NORMAL MITRAL VALVE: NORMAL PULMONIC VALVE: NORMAL AORTIC VALVE: NORMAL PERICARDIAL EFFUSION: NONE AORTIC ROOT: NORMAL LEFT VENTRICULAR WALL MOTION: MILD DISTAL ALLISON-SEPTAL HYPOKINESIS DOPPLER/COLOR FLOW: SEE BELOW COMMENTS: 1. LOW NORMAL LEFT VENTRICULAR EJECTION FRACTION 50% 2. MILD DISTAL ALLISON-SEPTAL HYPOKINESIS 3. GRADE I DIASTOLIC DYSFUNCTION TECHNOLOGIST: JAY MELENDEZ
[2023-09-29] MEDS ORDERED: LIDOCAINE 2% MPF 5 ML VIAL ONE ×2 (07:12→07:20)
[2023-09-29] MEDS ORDERED: ONDANSETRON 4 MG/2 ML VIAL ONE ×2 (07:12→07:20)
[2023-09-29] MEDS ORDERED: propofoL 200 MG/20 ML VIAL IV ONE ×2 (07:12→07:20)
[2023-09-29] MEDS ORDERED: FENTANYL CITR 100 MCG/2 ML ONE ×2 (07:13→07:20)
[2023-09-29] MEDS ORDERED: MIDAZOLAM HCL 2 MG/2 ML INJ ONE ×2 (07:13→07:20)
[2023-09-29] MEDS ORDERED: LIDOCAINE 1% 20 ML MDV ONE (07:14)
[2023-09-29] MEDS ORDERED: INSULIN REGULAR (HUMAN) 100 UNIT/ML ONE (07:27)
[2023-09-29] MEDS ORDERED: EPHEDRINE SULF 50 MG/ML VIAL ONE (07:41)
--- NOTE | 2023-09-29 08:03 | P.OP ---
Primary procedure: Right foot incision and drainage with closure of wound via advancement flap Secondary procedure: right second digit bone biopsy Anesthesia: general Estimated blood loss: <20cc Specimen: bone for gross Findings: granular wound bed, no purulence present Operative Technique: as dictated Complications: None Implants: none Transferred to: Recovery Room Condition: Good
--- NOTE | 2023-09-29 08:18 | P.PN ---
Subjective Date of Service: 09/29/23 Chief Complaint: RIGHT 2ND TOE ISCHEMIA This morning, she underwent right foot incision and drainage with closure of wound via advancement flap and bone biopsy of the second metatarsal. She reports that she is doing well at this time and that her symptoms are well-controlled. She denies any fevers or chills. Review of Systems 10-point ROS is otherwise unremarkable Musculoskeletal: Foot Pain (right - minimal) Physical Examination - Vital Signs Temperature: 98 F Blood Pressure: 110/80 Pulse: 80 Respirations: 19 Pulse Ox (%): 98 - Physical Exam General: Alert, In no apparent distress, Oriented x3 HEENT: Atraumatic Neck: JVD not distended Respiratory: Clear to auscultation bilaterally, Normal air movement Cardiovascular: Regular rate/rhythm, Normal S1 S2, No gallops, No rubs, No murmurs Gastrointestinal: Normal bowel sounds, Soft and benign, Non-distended, No tenderness, No rebound, No guarding Musculoskeletal: No clubbing, Other (right foot wrapped in clean dressing) Integumentary: No rashes Neurological: Normal speech, Normal affect - Studies Medications List Reviewed: Yes Assessment And Plan - Plan # Peripheral Arterial Disease complicated by Right 2nd Toe Osteomyelitis/Dry Gangrene # Hyperlipidemia - Evaluation thus far: - Right foot x-ray = "soft tissue swelling and gas centered around the second digit as above concerning for cellulitis. No adjacent osseous lucencies are observed, however MRI of the foot would provide improved sensitivity for osteomyelitis evaluation if clinically indicated. Osseous remodeling with well corticated margins at the tuft of the first digit distal phalanx, could be of chronic nature" - Right foot MRI = "signal abnormality suggestive of osteomyelitis involving the second digit middle and proximal phalanges. Central shaft and base of second metatarsal signal abnormalities, could also relate to osteomyelitis, however may relate to a healing fracture given linear T1 hypointense signal at the base. Soft tissue abnormalities as above. No findings to suggest an abnormal fluid collection on noncontrast MRI." - Right arterial Doppler = "significant peripheral vascular disease with segmental occlusion along the proximal to mid right SFA. More distally there is reconstitution with monophasic flow" - CT angiogram right lower extremity = "long segment of occlusion of the right superficial femoral artery at its origin with reconstitution secondary to collaterals at the level of the mid to distal third of the femur. Multifocal atherosclerotic luminal narrowing as above, including caliber diminution of the right peroneal artery distal to the level of the lateral malleolus. Dorsalis pedis artery is patent." - Toe Biopsy (09/27) - "gangrenous necrosis. Skin at resection margin with gangrenous necrosis. Suggestive of osteomyelitis, recommend clinical and radiographic correlation" - Repeat biopsy (09/29) = pending - Management plan: - Consulted Cardiology and Podiatry - recommendations appreciated - 09/27: Right second digit amputation with incision and drainage of foot - 09/29: Right foot incision and drainage with closure of wound via advancement flap and bone biopsy of the second metatarsal. - Offered Infectious Diseases consultation; however, she declined at this time due to poor prior experiences with Infectious Diseases - Await biopsy results to determine duration of IV antibiotics - Continue aspirin, rosuvastatin, heparin drip - Continue vancomycin + piperacillin-tazobactam # Hypertension - Continue losartan # Type II Diabetes Mellitus - Correction scale insulin Yonny Euceda M.D.
--- NOTE | 2023-09-29 09:02 | OP ---
Surgeon: Shen Briseno Jr, DPM Preoperative Diagnosis: Right foot abscess. Postoperative Diagnosis: Right foot abscess. Procedure: Right foot incision and drainage with closure of wound via advancement flap and bone biop sy of the second metatarsal. Pathology: Bone biopsy right second metatarsal. Anesthesia: General. Hemostasis: None. Estimated Blood Loss: Less than 20 cc. Materials: 2-0 Prolene. Injectables: None. Complications: None. Procedure In Detail: Patient was brought into [facility] operating room, placed on e AR table in supine position. Patient was placed under general anesthesia by the anesthesiologist karlos senior patient was prepped and draped in the usual aseptic manner. Attention was turned to the right for efoot at which time a previous I and D and amputation of the second digit was identified. The wound was inspected. There was no purulence noted. There was large granulation. Wound was irrigated with copious amounts of normal sterile saline using pulse lavage. Any nonviable tissue was removed from the wound, which was minimal in nature. At this time, the medial and lateral flaps were remodeled an d advanced for closure. Closure was then obtained utilizing 2-0 Prolene. Before closure, a rongeur was utilized to take a bone biopsy of the right second metatarsal head and closure of this obtained. Sterile dressing consisting of Adaptic, 4 x 4's, Kerlix, and Angel wraps applied to the right lower ex tremity. The patient tolerated the procedure and anesthesia well, was transferred from [place] to [facility] with vital signs stable and neurovascular status intact. RS/MODL Voice ID: [id number] Report ID: [id number]
--- NOTE | 2023-09-29 10:00 | RAD REPORT ---
EXAM DESCRIPTION: CT - Lower Ext Angio - 09/29/2023 9:06 am CLINICAL HISTORY: necrotic right toe, PAD COMPARISON: Lower Extremity [facility] dated 09/27/2023 TECHNIQUE: Thin cut axial CT angiographic imaging of the right lower extremity was performed followi ng intravenous administration of 150 mL Isovue 370. Multiplanar reformats were generated and reviewed . All CT scans are performed using dose optimization technique as appropriate and may include automated exposure control or mA/KV adjustment according to patient size. FINDINGS: Moderate to advanced burden of atherosclerotic calcifications. Aortic bifurcation is paten t. Proximal aspect of the left common iliac and internal iliac arteries are patent, although there is moderate focal narrowing near the origin of the left common iliac artery. Right external and interna l iliac arteries are patent. Right common femoral artery is patent with moderate multifocal atheroscl erotic narrowing. There is complete occlusion of the right superficial femoral artery at its origin. The deep femoral artery is patent. There is reconstitution of flow through collaterals of the distal right superficial femoral artery at the level of the mid to distal third of the femur, axial image 88/224. Mild multifocal narrowing of the right popliteal artery. Patent right anterior and posterior tibial arteries to the level of the d orsalis pedis artery and sole of the foot respectively. Diminutive caliber of the peroneal artery dis vicente to the level of the lateral malleolus, likely due to atherosclerotic narrowing. Visualized soft tissues of the pelvic girdle and right lower extremity are unremarkable. No suspiciou s osseous abnormality. Visualized bowel, bladder, and uterus are unremarkable. IMPRESSION: Long segment of occlusion of the right superficial femoral artery at its origin with rec onstitution secondary to collaterals at the level of the mid to distal third of the femur. Multifocal atherosclerotic luminal narrowing as above, including caliber diminution of the right vahid corinne artery distal to the level of the lateral malleolus. Dorsalis pedis artery is patent.
[2023-09-29] MEDS: LOSARTAN POTASSIUM 50 MG TABLET PO SCH (10:17)
[2023-09-29] MEDS: NA CHLORIDE 0.9% 1,000 ML IV SCH ×2 (10:17→13:28)
[2023-09-29] MEDS: GABAPENTIN 400 MG CAP PO SCH ×3 (10:17→20:28)
[2023-09-29] MEDS: ASPIRIN EC 81 MG TAB PO SCH (10:18)
[2023-09-29] MEDS: VANCOMYCIN 1.5 GM in NA CHLORIDE 0.9% 500 ML IVPB SCH ×2 (10:37→20:28)
[2023-09-29] MEDS ORDERED: GLUCAGON 1 MG/VIAL IM PRN (12:07)
[2023-09-29] MEDS ORDERED: D50W 25 GM/50 ML SYRINGE IV PRN (12:07)
[2023-09-29] MEDS ORDERED: D10W 125 ML IV PRN (12:19)
[2023-09-29] MEDS: INSULIN REGULAR (HUMAN) 100 UNIT/ML SQ SCH ×3 (12:19→20:26)
[2023-09-29] MEDS: ROSUVASTATIN 10 MG TAB PO SCH (20:28)
[2023-09-30 02:31] LABS: Absolute Lymphocytes (CBC) 3.2 K/uL (0.7-4.9); MCV 80.6 fL (80-100); MPV 7.7 fL (7.6-11.3); Platelets 227 thou/uL (152-406); RBC Red Blood Cell Count 3.85 M/uL (3.86-4.86)
[2023-09-30 02:53] LABS: ALT/SGPT 13 U/L (13-56); Albumin 2.5 g/dL (3.4-5.0); Alkaline Phosphatase 72 U/L (45-117); BUN Blood Urea Nitrogen 8 mg/dL (7-18); Bicarbonate 25 mEq/L (21-32); Bilirubin Total 0.3 mg/dL (0.2-1.0); Glomerular Filtration Rate 106 ml/min (=/>90); Glucose Level 209 mg/dL (74-106); Magnesium 1.6 mg/dL (1.6-2.4); Phosphorus 3.2 mg/dL (2.5-4.9); Potassium 3.9 mEq/L (3.5-5.1); Protein, Total 6.3 g/dL (6.4-8.2); Sodium Level 139 mEq/L (136-145)
[2023-09-30 02:54] LABS: AST/SGOT < 4 U/L (15-37)
[2023-09-30] MEDS: PIPER TAZO 3.375 GM in NA CHLORIDE 0.9% 100 ML IV SCH ×3 (04:54→21:04)
[2023-09-30] MEDS: INSULIN REGULAR (HUMAN) 100 UNIT/ML SQ SCH ×4 (07:30→21:05)
[2023-09-30] MEDS: GABAPENTIN 400 MG CAP PO SCH ×3 (08:28→21:04)
[2023-09-30] MEDS: ASPIRIN EC 81 MG TAB PO SCH (08:28)
[2023-09-30] MEDS: LOSARTAN POTASSIUM 50 MG TABLET PO SCH (08:28)
[2023-09-30] MEDS: VANCOMYCIN 1.5 GM in NA CHLORIDE 0.9% 500 ML IVPB SCH ×2 (08:29→21:05)
--- NOTE | 2023-09-30 08:44 | P.PN ---
Subjective Date of Service: 09/30/23 Chief Complaint: RIGHT 2ND TOE ISCHEMIA Subjective: Doing well Review of Systems 10-point ROS is otherwise unremarkable Physical Examination - Vital Signs Temperature: 99.3 F Blood Pressure: 126/54 Pulse: 86 Respirations: 16 Pulse Ox (%): 96 - Physical Exam General: Alert, In no apparent distress, Oriented x3 Cardiovascular: No edema, Abnormal pulses Capillary refill: <2 Seconds Musculoskeletal: No clubbing, No swelling, No contractures, No erythema, No tenderness, No warmth Integumentary: Other (Dressing change performed at bedside. Operative site demonstrates no signs of infection. No dehiscence noted, no purulence, no necrosis) Neurological: Abnormal sensation - Studies Medications List Reviewed: Yes Assessment And Plan - Current Problems (Diagnosis) (1) Osteomyelitis of second toe of right foot Current Visit: Yes Status: Acute (2) Abscess of right foot including toes Current Visit: Yes Status: Acute (3) Hyperlipidemia associated with type 2 diabetes mellitus Current Visit: Yes Status: Acute (4) Peripheral arterial disease Current Visit: Yes Status: Acute - Plan 1. Dressing change performed at bedside 2. awaiting results of bone biopsy to determine if buttermaker iv antibiotics should be scheduled 3. awaiting cardiology recs for pvd treatment Physician Review: Patient Assessed, Agree with Above Assessment and Plan
--- NOTE | 2023-09-30 16:43 | P.PN ---
Subjective Date of Service: 09/30/23 Chief Complaint: RIGHT 2ND TOE ISCHEMIA POD #1 from right foot incision and drainage with closure of wound via advancement flap and bone biopsy of the second metatarsal. She reports that her pain is well-controlled. She denies any fevers or chills. Review of Systems 10-point ROS is otherwise unremarkable Integumentary: Other (right foot with minimal discomfort.) Physical Examination - Vital Signs Temperature: 97.2 F Blood Pressure: 140/64 Pulse: 77 Respirations: 17 Pulse Ox (%): 98 - Physical Exam General: Alert, In no apparent distress, Oriented x3 HEENT: Atraumatic, Mucous membr. moist/pink, Sclerae nonicteric Neck: JVD not distended Respiratory: Clear to auscultation bilaterally, Normal air movement Cardiovascular: No edema, Regular rate/rhythm, No murmurs Gastrointestinal: Normal bowel sounds, Soft and benign, Non-distended, No tenderness Musculoskeletal: No clubbing Integumentary: Other (right foot covered in clean dressing) Neurological: Normal speech, Normal affect - Studies Medications List Reviewed: Yes Assessment And Plan - Plan # Peripheral Arterial Disease complicated by Right 2nd Toe Osteomyelitis/Dry Guillermo grene # Hyperlipidemia - Evaluation thus far: - Right foot x-ray = "soft tissue swelling and gas centered around the second digit as above concerning for cellulitis. No adjacent osseous lucencies are observed, however MRI of the foot would provide improved sensitivity for osteomyelitis evaluation if clinically indicated. Osseous remodeling with well corticated margins at the tuft of the first digit distal phalanx, could be of chronic nature" - Right foot MRI = "signal abnormality suggestive of osteomyelitis involving the second digit middle and proximal phalanges. Central shaft and base of second metatarsal signal abnormalities, could also relate to osteomyelitis, however may relate to a healing fracture given linear T1 hypointense signal at the base. Soft tissue abnormalities as above. No findings to suggest an abnormal fluid collection on noncontrast MRI." - Right arterial Doppler = "significant peripheral vascular disease with segmental occlusion along the proximal to mid right SFA. More distally there is reconstitution with monophasic flow" - CT angiogram right lower extremity = "long segment of occlusion of the right superficial femoral artery at its origin with reconstitution secondary to collaterals at the level of the mid to distal third of the femur. Multifocal atherosclerotic luminal narrowing as above, including caliber diminution of the right peroneal artery distal to the level of the lateral malleolus. Dorsalis pedis artery is patent." - Toe Biopsy (09/27) - "gangrenous necrosis. Skin at resection margin with gangrenous necrosis. Suggestive of osteomyelitis, recommend clinical and radiographic correlation" - Repeat biopsy (09/29) = pending - Management plan: - Consulted Cardiology and Podiatry - recommendations appreciated - 09/27: Right second digit amputation with incision and drainage of foot - 09/29: Right foot incision and drainage with closure of wound via advancement flap and bone biopsy of the second metatarsal. - Offered Infectious Diseases consultation; however, she declined at this time due to poor prior experiences with Infectious Diseases - Await biopsy results to determine duration of IV antibiotics - Continue aspirin, rosuvastatin - Spoke with Dr. Streeter - recommends discontinuing heparin drip - Continue vancomycin + piperacillin-tazobactam # Hypertension - Continue losartan # Type II Diabetes Mellitus - Correction scale insulin Disposition: Pending bone biopsy results. Yonny Euceda M.D.
[2023-09-30] MEDS: ROSUVASTATIN 10 MG TAB PO SCH (21:04)
[2023-10-01] MEDS: PIPER TAZO 3.375 GM in NA CHLORIDE 0.9% 100 ML IV SCH ×3 (03:57→20:54)
[2023-10-01] MEDS: ASPIRIN EC 81 MG TAB PO SCH (07:55)
[2023-10-01] MEDS: GABAPENTIN 400 MG CAP PO SCH ×3 (07:55→20:53)
[2023-10-01] MEDS: LOSARTAN POTASSIUM 50 MG TABLET PO SCH (07:55)
[2023-10-01] MEDS: INSULIN REGULAR (HUMAN) 100 UNIT/ML SQ SCH ×4 (08:58→21:48)
[2023-10-01 09:29] LABS: Hematocrit 32.4 % (36.0-45.0)
[2023-10-01] MEDS: VANCOMYCIN 1.5 GM in NA CHLORIDE 0.9% 500 ML IVPB SCH (10:11)
--- NOTE | 2023-10-01 18:15 | P.PN ---
Subjective Date of Service: 10/01/23 Chief Complaint: RIGHT 2ND TOE ISCHEMIA POD #2 from right foot incision and drainage with closure of wound via advancement flap and bone biopsy of the second metatarsal. Biopsy result is consistent with acute osteomyelitis. Infectious Diseases consulted. She reports that her pain is well-controlled. She denies any fevers or chills. Review of Systems 10-point ROS is otherwise unremarkable Musculoskeletal: Foot Pain (right - minimal) Physical Examination - Vital Signs Temperature: 97.8 F Blood Pressure: 144/52 Pulse: 68 Respirations: 16 Pulse Ox (%): 97 - Physical Exam General: Alert, In no apparent distress, Oriented x3 HEENT: Atraumatic, Mucous membr. moist/pink, Sclerae nonicteric Neck: JVD not distended Respiratory: Clear to auscultation bilaterally, Normal air movement Cardiovascular: No edema, Regular rate/rhythm, No gallops, No rubs, No murmurs Gastrointestinal: Normal bowel sounds, Soft and benign, Non-distended, No tenderness, No rebound, No guarding Musculoskeletal: No clubbing Integumentary: No rashes, Other (right foot is covered in clean surgical dressing) Neurological: Normal speech, Normal affect - Studies Medications List Reviewed: Yes Assessment And Plan - Plan # Peripheral Arterial Disease complicated by Right 2nd Toe Osteomyelitis/Dry Gangrene # Hyperlipidemia - Evaluation thus far: - Right foot x-ray = "soft tissue swelling and gas centered around the second digit as above concerning for cellulitis. No adjacent osseous lucencies are observed, however MRI of the foot would provide improved sensitivity for osteomyelitis evaluation if clinically indicated. Osseous remodeling with well corticated margins at the tuft of the first digit distal phalanx, could be of chronic nature" - Right foot MRI = "signal abnormality suggestive of osteomyelitis involving the second digit middle and proximal phalanges. Central shaft and base of second metatarsal signal abnormalities, could also relate to osteomyelitis, however may relate to a healing fracture given linear T1 hypointense signal at the base. Soft tissue abnormalities as above. No findings to suggest an abnormal fluid collection on noncontrast MRI." - Right arterial Doppler = "significant peripheral vascular disease with segmental occlusion along the proximal to mid right SFA. More distally there is reconstitution with monophasic flow" - CT angiogram right lower extremity = "long segment of occlusion of the right superficial femoral artery at its origin with reconstitution secondary to collaterals at the level of the mid to distal third of the femur. Multifocal atherosclerotic luminal narrowing as above, including caliber diminution of the right peroneal artery distal to the level of the lateral malleolus. Dorsalis pedis artery is patent." - Toe Biopsy (09/27) - "gangrenous necrosis. Skin at resection margin with gangrenous necrosis. Suggestive of osteomyelitis, recommend clinical and radiographic correlation" - Repeat biopsy (09/29) = "Consistent with acute osteomyelitis" - Management plan: - Consulted Cardiology and Podiatry - recommendations appreciated - 09/27: Right second digit amputation with incision and drainage of foot - 09/29: Right foot incision and drainage with closure of wound via advancement flap and bone biopsy of the second metatarsal. - Offered Infectious Diseases consultation; however, she declined at this time due to poor prior experiences with Infectious Diseases - Await biopsy results to determine duration of IV antibiotics - Continue aspirin, rosuvastatin - Spoke with [employer] Maggie (for Dr. Streeter) - recommends angiography when more medically stable - Consulted Infectious Diseases and spoke with [employer] Mireya (for Dr. Roberts) - recommends 6 weeks of IV antibiotics - Continue vancomycin + piperacillin-tazobactam # Hypertension - Continue losartan # Type II Diabetes Mellitus - Correction scale insulin Disposition: Pending ID and Cardiology recs. Yonny Euceda M.D. Physician Review: Patient Assessed, Agree with Above Assessment and Plan
[2023-10-01] MEDS: ROSUVASTATIN 10 MG TAB PO SCH (20:53)
[2023-10-01] MEDS: VANCOMYCIN 1.75 GM in NA CHLORIDE 0.9% 500 ML IVPB SCH (20:54)
[2023-10-02 03:51] LABS: Magnesium 1.5 mg/dL (1.6-2.4); Potassium 3.4 mEq/L (3.5-5.1)
[2023-10-02] MEDS: PIPER TAZO 3.375 GM in NA CHLORIDE 0.9% 100 ML IV SCH ×3 (05:00→19:52)
[2023-10-02] MEDS: LOSARTAN POTASSIUM 50 MG TABLET PO SCH (08:37)
[2023-10-02] MEDS: ASPIRIN EC 81 MG TAB PO SCH (08:37)
[2023-10-02] MEDS: GABAPENTIN 400 MG CAP PO SCH ×3 (08:37→19:57)
[2023-10-02] MEDS: VANCOMYCIN 1.75 GM in NA CHLORIDE 0.9% 500 ML IVPB SCH ×2 (08:38→22:32)
[2023-10-02] MEDS: INSULIN REGULAR (HUMAN) 100 UNIT/ML SQ SCH ×4 (08:38→22:32)
[2023-10-02] MEDS ORDERED: Magnesium Sulfate 2gm IVPB 2 G/50 ML BAG IV ONE (10:32)
[2023-10-02] MEDS ORDERED: POTASSIUM CL SA 10 MEQ TAB PO ONE (10:32)
--- NOTE | 2023-10-02 16:14 | P.PN ---
Subjective Date of Service: 10/02/23 Chief Complaint: RIGHT 2ND TOE ISCHEMIA POD #3 from right foot incision and drainage with closure of wound via advancement flap and bone biopsy of the second metatarsal. She reports that her pain is well-controlled. She denies any fevers or chills. Cardiology planning for angiogram early this week. Review of Systems 10-point ROS is otherwise unremarkable Musculoskeletal: Foot Pain (right - minimal) Physical Examination - Vital Signs Temperature: 97.5 F Blood Pressure: 127/62 Pulse: 54 Respirations: 16 Pulse Ox (%): 96 - Physical Exam General: Alert, In no apparent distress, Oriented x3 HEENT: Atraumatic, Mucous membr. moist/pink, Sclerae nonicteric Respiratory: Clear to auscultation bilaterally, Normal air movement Cardiovascular: No edema, Regular rate/rhythm, No murmurs Gastrointestinal: Normal bowel sounds, Soft and benign, Non-distended, No tenderness Musculoskeletal: Other (right foot covered in clean dressing) Integumentary: No rashes Neurological: Normal speech, Cranial nerves 3-12 intact, Normal affect - Studies Medications List Reviewed: Yes Assessment And Plan - Plan # Peripheral Arterial Disease complicated by Right 2nd Toe Osteomyelitis/Dry Gangrene # Hyperlipidemia - Evaluation thus far: - Right foot x-ray = "soft tissue swelling and gas centered around the second digit as above concerning for cellulitis. No adjacent osseous lucencies are observed, however MRI of the foot would provide improved sensitivity for osteomyelitis evaluation if clinically indicated. Osseous remodeling with well corticated margins at the tuft of the first digit distal phalanx, could be of chronic nature" - Right foot MRI = "signal abnormality suggestive of osteomyelitis involving the second digit middle and proximal phalanges. Central shaft and base of second metatarsal signal abnormalities, could also relate to osteomyelitis, however may relate to a healing fracture given linear T1 hypointense signal at the base. Soft tissue abnormalities as above. No findings to suggest an abnormal fluid collection on noncontrast MRI." - Right arterial Doppler = "significant peripheral vascular disease with segmental occlusion along the proximal to mid right SFA. More distally there is reconstitution with monophasic flow" - CT angiogram right lower extremity = "long segment of occlusion of the right superficial femoral artery at its origin with reconstitution secondary to collaterals at the level of the mid to distal third of the femur. Multifocal atherosclerotic luminal narrowing as above, including caliber diminution of the right peroneal artery distal to the level of the lateral malleolus. Dorsalis pedis artery is patent." - Toe Biopsy (09/27) - "gangrenous necrosis. Skin at resection margin with gangrenous necrosis. Suggestive of osteomyelitis, recommend clinical and radiographic correlation" - Repeat biopsy (09/29) = "Consistent with acute osteomyelitis" - Management plan: - Consulted Cardiology and Podiatry - recommendations appreciated - 09/27: Right second digit amputation with incision and drainage of foot - 09/29: Right foot incision and drainage with closure of wound via advancement flap and bone biopsy of the second metatarsal. - Continue aspirin, rosuvastatin - Consulted Cardiology (Dr. Streeter) - recommends angiography early this week - Consulted Infectious Diseases (for Dr. Roberts) - recommends 6 weeks of IV antibiotics - Continue vancomycin + piperacillin-tazobactam # Hypertension - Continue losartan # Type II Diabetes Mellitus - Correction scale insulin Disposition: Pending ID and Cardiology recs. Yonny Euceda M.D.
[2023-10-02] MEDS: ROSUVASTATIN 10 MG TAB PO SCH (19:57)
[2023-10-03] MEDS: PIPER TAZO 3.375 GM in NA CHLORIDE 0.9% 100 ML IV SCH ×3 (04:56→20:32)
[2023-10-03 06:18] LABS: Absolute Lymphocytes (CBC) 2.8 K/uL (0.7-4.9); Hematocrit 33.4 % (36.0-45.0); Lymphocytes % 30.9 % (15.3-44.8); MCV 80.8 fL (80-100); MPV 7.7 fL (7.6-11.3); Platelets 250 thou/uL (152-406); RBC Red Blood Cell Count 4.14 M/uL (3.86-4.86)
[2023-10-03 06:34] LABS: Magnesium 1.8 mg/dL (1.6-2.4); Phosphorus 3.4 mg/dL (2.5-4.9); Potassium 3.9 mEq/L (3.5-5.1)
[2023-10-03] MEDS: ASPIRIN EC 81 MG TAB PO SCH (09:18)
[2023-10-03] MEDS: GABAPENTIN 400 MG CAP PO SCH ×3 (09:18→20:36)
[2023-10-03] MEDS: LOSARTAN POTASSIUM 50 MG TABLET PO SCH (09:18)
[2023-10-03] MEDS: VANCOMYCIN 1.75 GM in NA CHLORIDE 0.9% 500 ML IVPB SCH ×2 (09:18→22:57)
[2023-10-03] MEDS: INSULIN REGULAR (HUMAN) 100 UNIT/ML SQ SCH ×4 (09:19→21:57)
[2023-10-03] MEDS: INSULIN GLARGINE 100 UNIT/ML SQ SCH (09:19)
--- NOTE | 2023-10-03 09:53 | P.CNS ---
Date of Consult: 10/03/23 Reason for Consult: osteomyelitis Chief Complaint: RIGHT 2ND TOE ISCHEMIA History of Present Illness: Patient is a 53yo female with a PMH of diabetes mellitus type II, hypertension, hyperlipidemia who presented to the ED with complaints of black toe x 2-3 days, worsening over the past 2 weeks. Found to have wet gangrene right second digit. Underwent right second digit amputation with incision and drainage of foot on 09/[address] Briseno. Then Right foot incision and drainage with closure of wound via advancement flap on 09/29. Infectious disease consulted for outpatient antibiotic recommendation. Allergies clindamycin Allergy (Verified 06/24/23 04:49) Itching/Hives/Rash erythromycin base Allergy (Verified 06/24/23 04:49) Itching/Hives/Rash atorvastatin [From Lipitor] Adverse Reaction (Verified 06/24/23 04:49) Nausea/Vomiting diclofenac [From Voltaren] Adverse Reaction (Verified 06/24/23 04:49) Nausea/Vomiting naproxen Adverse Reaction (Verified 06/24/23 04:49) Nausea/Vomiting Home Medications: Aspirin 81 mg PO BEDTIME 06/23/23 Gabapentin 400 mg PO TID 06/23/23 Glimepiride 4 mg PO BID 06/23/23 Losartan Potassium 50 mg PO DAILY 06/23/23 Metformin HCl 500 mg PO BID 06/23/23 Kimball-3/Dha/Epa/Fish Oil [Fish Oil 1,000 mg Softgel] 1 each PO DAILY 06/23/23 Rosuvastatin Calcium 20 mg PO BEDTIME 06/23/23 Calcium Citrate/Vitamin D3 [Calcium Citrate - Vit D Tablet] 1 each PO DAILY Cholecalciferol (Vitamin D3) [Vitamin D 5,000 Iu Cap] 5,000 unit PO DAILY 09/27/23 Magnesium Oxide [Magnesium] 250 mg PO DAILY 09/27/23 Omeprazole 20 mg PO DAILY 09/27/23 Zinc Amino Acid Chelate [Zinc] 50 mg PO DAILY 09/27/23 - Past Medical/Surgical History Diabetic: Yes -: Hypertension -: Diabetes type 2 -: Hyperlipidemia - Family History Father Family History: Reviewed- Non-Contributory - Social History Smoking Status: Current every day smoker, Unknown if ever smoked Alcohol use: No CD- Drugs: No Caffeine use: No Place of Residence: Home Physical Examination Temp Pulse Resp BP Pulse Ox 97.7 F 64 17 131/85 98 10/03/23 04:00 10/03/23 04:00 10/03/23 04:00 10/03/23 04:00 10/03/23 04:00 Laboratory Data - Reviewed Microbiology Data - Reviewed Imagings Data: -MRI right foot 09/27: "signal abnormality suggestive of osteomyelitis involving the second digit middle and proximal phalanges. Central shaft and base of second metatarsal signal abnormalities, could also relate to osteomyelitis, however may relate to a healing fracture given linear T1 hypointense signal at the base. Soft tissue abnormalities as above. No findings to suggest an abnormal fluid collection on noncontrast MRI." - Right arterial Doppler 09/26:"significant peripheral vascular disease with segmental occlusion along the proximal to mid right SFA. More distally there is reconstitution with monophasic flow" Conclusions/Impression: Problem List Wet gangrene right second toe Diabetes Mellitus type II Hypertension Hyperlipidemia Wet Gangrene right second toe - Underwent right second digit amputation with incision and drainage of foot on 09/[address] Briseno. - Right foot incision and drainage with closure of wound via advancement flap on 09/29. - Started on Zosyn and Vancomycin 09/27 - Wound culture: no growth to date - Severe PVD: Cardiology consulted. Recommendations - Osteomyelitis s/p amputation: continue antibiotic therapy for 7 days postoperatively. Currently on day 6 of 7. - Strict blood glucose control - wound care per surgery team - severe PVD: see cardiology note for further recommendations Case Disussed with Felipe Keller
--- NOTE | 2023-10-03 14:15 | P.PN ---
Subjective Date of Service: 10/03/23 Chief Complaint: RIGHT 2ND TOE ISCHEMIA Pt is resting comfortably in bed. Pt is POD #4, I&D. Will do angiography tomorrow. No other complaints. Review of Systems Unremarkable General: Unremarkable Eyes: Unremarkable ENT: Unremarkable Respiratory: Unremarkable Cardiovascular: Unremarkable Gastrointestinal: Unremarkable Genitourinary: Unremarkable Musculoskeletal: Unremarkable Integumentary: Unremarkable Neurological: Unremarkable Lymphatics: Unremarkable Physical Examination - Vital Signs Temperature: 97.4 F Blood Pressure: 127/60 Pulse: 67 Respirations: 18 Pulse Ox (%): 94 - Physical Exam General: Alert, In no apparent distress, Oriented x3 HEENT: Atraumatic, Normocephalic, PERRLA Neck: Supple, 2+ carotid pulse no bruit Respiratory: Clear to auscultation bilaterally, Normal air movement Cardiovascular: No edema, Normal pulses, Regular rate/rhythm, Normal S1 S2 Capillary refill: <2 Seconds Gastrointestinal: Normal bowel sounds, Soft and benign, Non-distended Musculoskeletal: No clubbing, No swelling Integumentary: No rashes, No breakdown, Other (S/P I&D) Neurological: Normal gait, Normal speech, Normal strength at 5/5 x4 extr Lymphatics: No axilla or inguinal lymphadenopathy - Studies Medications List Reviewed: Yes Assessment And Plan - Plan Peripheral Arterial Disease complicated by Right 2nd Toe Osteomyelitis/Dry Gangrene: Will continue iv vanc and zosyn. ID and cardiology are following. Pt will need iv antibiotics for 6 weeks. Podiatry did I&D on - 09/27: Right second digit amputation with incision and drainage of foot - 09/29: Right foot incision and drainage with closure of wound via advancement flap and bone biopsy of the second metatarsal. Right foot x-ray = "soft tissue swelling and gas centered around the second digit as above concerning for cellulitis. No adjacent osseous lucencies are observed, however MRI of the foot would provide improved sensitivity for osteomyelitis evaluation if clinically indicated. Osseous remodeling with well corticated margins at the tuft of the first digit distal phalanx, could be of chronic nature" Right foot MRI = "signal abnormality suggestive of osteomyelitis involving the second digit middle and proximal phalanges. Central shaft and base of second metatarsal signal abnormalities, could also relate to osteomyelitis, however may relate to a healing fracture given linear T1 hypointense signal at the base. Soft tissue abnormalities as above. No findings to suggest an abnormal fluid collection on noncontrast MRI." Right arterial Doppler = "significant peripheral vascular disease with segmental occlusion along the proximal to mid right SFA. More distally there is reconstitution with monophasic flow" CT angiogram right lower extremity = "long segment of occlusion of the right superficial femoral artery at its origin with reconstitution secondary to collaterals at the level of the mid to distal third of the femur. Multifocal atherosclerotic luminal narrowing as above, including caliber diminution of the right peroneal artery distal to the level of the lateral malleolus. Dorsalis pedis artery is patent." Toe Biopsy (09/27) - "gangrenous necrosis. Skin at resection margin with gangrenous necrosis. Suggestive of osteomyelitis, recommend clinical and radiographic correlation" Repeat biopsy (09/29) = "Consistent with acute osteomyelitis" HLD: Continue aspirin and rosuvastatin Hypertension: Continue losartan Type II Diabetes Mellitus: Continue accuchek, SSI and ADA diet Disposition: Pending hospital and ID and Cardiology recs. Physician Review: Patient Assessed, Agree with Above Assessment and Plan
[2023-10-03] MEDS: ROSUVASTATIN 10 MG TAB PO SCH (20:36)
[2023-10-04 02:17] LABS: Absolute Lymphocytes (CBC) 3.8 K/uL (0.7-4.9); Hematocrit 32.3 % (36.0-45.0); Lymphocytes % 38.6 % (15.3-44.8); MCV 80.6 fL (80-100); MPV 7.8 fL (7.6-11.3); Platelets 262 thou/uL (152-406); RBC Red Blood Cell Count 4.01 M/uL (3.86-4.86)
[2023-10-04 02:49] LABS: Potassium 3.7 mEq/L (3.5-5.1)
[2023-10-04] MEDS: PIPER TAZO 3.375 GM in NA CHLORIDE 0.9% 100 ML IV SCH ×3 (04:07→20:20)
[2023-10-04] MEDS ORDERED: D50W 25 GM/50 ML SYRINGE IV PRN (07:38)
[2023-10-04] MEDS ORDERED: GLUCAGON 1 MG/VIAL IM PRN (07:38)
[2023-10-04] MEDS: VANCOMYCIN 1.75 GM in NA CHLORIDE 0.9% 500 ML IVPB SCH (08:55)
[2023-10-04] MEDS: INSULIN LISPRO 100 UNIT/ML SQ SCH ×3 (08:56→16:47)
[2023-10-04] MEDS: INSULIN REGULAR (HUMAN) 100 UNIT/ML SQ SCH ×5 (08:56→22:14)
[2023-10-04] MEDS: LOSARTAN POTASSIUM 50 MG TABLET PO SCH (08:57)
[2023-10-04] MEDS: ASPIRIN EC 81 MG TAB PO SCH (08:57)
[2023-10-04] MEDS: INSULIN GLARGINE 100 UNIT/ML SQ SCH (08:57)
[2023-10-04] MEDS: GABAPENTIN 400 MG CAP PO SCH ×3 (08:57→20:21)
--- NOTE | 2023-10-04 11:23 | P.PN ---
Subjective Date of Service: 10/04/23 Chief Complaint: RIGHT 2ND TOE ISCHEMIA Pt is resting comfortably in bed. Pt is POD #5, I&D. Will do angiography today. No other complaints. Review of Systems Unremarkable General: Unremarkable Eyes: Unremarkable ENT: Unremarkable Respiratory: Unremarkable Cardiovascular: Unremarkable Gastrointestinal: Unremarkable Genitourinary: Unremarkable Musculoskeletal: Unremarkable Integumentary: Unremarkable Neurological: Unremarkable Lymphatics: Unremarkable Physical Examination - Vital Signs Temperature: 97.3 F Blood Pressure: 130/56 Pulse: 56 Respirations: 20 Pulse Ox (%): 94 - Physical Exam General: Alert, In no apparent distress, Oriented x3 HEENT: Atraumatic, Normocephalic, PERRLA Neck: Supple, 2+ carotid pulse no bruit Respiratory: Clear to auscultation bilaterally, Normal air movement Cardiovascular: No edema, Normal pulses, Regular rate/rhythm, Normal S1 S2 Capillary refill: <2 Seconds Gastrointestinal: Normal bowel sounds, Soft and benign Musculoskeletal: No clubbing, No swelling Integumentary: No rashes, No breakdown Neurological: Normal gait, Normal speech, Normal strength at 5/5 x4 extr Lymphatics: No axilla or inguinal lymphadenopathy - Studies Medications List Reviewed: Yes Assessment And Plan - Plan Peripheral Arterial Disease complicated by Right 2nd Toe Osteomyelitis/Dry Gangrene: Will continue iv vanc and zosyn. ID and cardiology are following. Pt will need iv antibiotics for 6 weeks. Pt will do angiography today Podiatry did I&D on - 09/27: Right second digit amputation with incision and drainage of foot - 09/29: Right foot incision and drainage with closure of wound via advancement flap and bone biopsy of the second metatarsal. Right foot x-ray = "soft tissue swelling and gas centered around the second digit as above concerning for cellulitis. No adjacent osseous lucencies are obs erved, however MRI of the foot would provide improved sensitivity for osteomyelitis evaluation if clinically indicated. Osseous remodeling with well corticated margins at the tuft of the first digit distal phalanx, could be of chronic nature" Right foot MRI = "signal abnormality suggestive of osteomyelitis involving the second digit middle and proximal phalanges. Central shaft and base of second metatarsal signal abnormalities, could also relate to osteomyelitis, however may relate to a healing fracture given linear T1 hypointense signal at the base. Soft tissue abnormalities as above. No findings to suggest an abnormal fluid collection on noncontrast MRI." Right arterial Doppler = "significant peripheral vascular disease with segmental occlusion along the proximal to mid right SFA. More distally there is reconstitution with monophasic flow" CT angiogram right lower extremity = "long segment of occlusion of the right superficial femoral artery at its origin with reconstitution secondary to collaterals at the level of the mid to distal third of the femur. Multifocal atherosclerotic luminal narrowing as above, including caliber diminution of the right peroneal artery distal to the level of the lateral malleolus. Dorsalis pedis artery is patent." Toe Biopsy (09/27) - "gangrenous necrosis. Skin at resection margin with gangrenous necrosis. Suggestive of osteomyelitis, recommend clinical and radiographic correlation" Repeat biopsy (09/29) = "Consistent with acute osteomyelitis" HLD: Continue aspirin and rosuvastatin Hypertension: Continue losartan Type II Diabetes Mellitus: Continue accuchek, SSI and ADA diet Disposition: Pending hospital course and ID and Cardiology recs. Physician Review: Patient Assessed, Agree with Above Assessment and Plan
[2023-10-04] MEDS: ROSUVASTATIN 10 MG TAB PO SCH (20:21)
[2023-10-05 02:20] LABS: Absolute Lymphocytes (CBC) 3.8 K/uL (0.7-4.9); Hematocrit 33.9 % (36.0-45.0); Lymphocytes % 37.7 % (15.3-44.8); MCV 80.2 fL (80-100); MPV 7.5 fL (7.6-11.3); Platelets 260 thou/uL (152-406); RBC Red Blood Cell Count 4.23 M/uL (3.86-4.86)
[2023-10-05 02:39] LABS: Potassium 3.8 mEq/L (3.5-5.1)
[2023-10-05] MEDS ORDERED: VANCOMYCIN 1.75 GM in NA CHLORIDE 0.9% 500 ML IVPB SCH (03:00)
[2023-10-05] MEDS: INSULIN REGULAR (HUMAN) 100 UNIT/ML SQ SCH ×4 (07:30→22:12)
[2023-10-05] MEDS: INSULIN LISPRO 100 UNIT/ML SQ SCH ×3 (08:00→17:32)
[2023-10-05] MEDS: INSULIN GLARGINE 100 UNIT/ML SQ SCH (08:54)
[2023-10-05] MEDS: ASPIRIN EC 81 MG TAB PO SCH (08:55)
[2023-10-05] MEDS: LOSARTAN POTASSIUM 50 MG TABLET PO SCH (08:55)
[2023-10-05] MEDS: GABAPENTIN 400 MG CAP PO SCH ×4 (09:00→22:12)
--- NOTE | 2023-10-05 09:45 | P.PN ---
Date of Service: 10/05/23 Chief Complaint: RIGHT 2ND TOE ISCHEMIA Subjective: In no apparent distress. Denies any new or worsening complaints at this time. No acute events overnight. Physical Examination Temp Pulse Resp BP Pulse Ox 97.2 F 60 16 134/61 95 10/05/23 08:00 10/05/23 08:00 10/05/23 08:00 10/05/23 08:00 10/05/23 08:00 Laboratory Data - Reviewed Microbiology Data - Reviewed Imagings Data: -MRI right foot 09/27: "signal abnormality suggestive of osteomyelitis involving the second digit middle and proximal phalanges. Central shaft and base of second metatarsal signal abnormalities, could also relate to osteomyelitis, however may relate to a healing fracture given linear T1 hypointense signal at the base. Soft tissue abnormalities as above. No findings to suggest an abnormal fluid collection on noncontrast MRI." - Right arterial Doppler 09/26:"significant peripheral vascular disease with segmental occlusion along the proximal to mid right SFA. More distally there is reconstitution with monophasic flow" Medications List: Reviewed Assessment and Plan Problem List Wet gangrene right second toe Diabetes Mellitus type II Hypertension Hyperlipidemia Wet Gangrene right second toe - Underwent right second digit amputation with incision and drainage of foot on 09/[address] Briseno. - Right foot incision and drainage with closure of wound via advancement flap on 09/29. - Completed 7 days of Zosyn and Vancomycin 09/27-10/04 - Wound culture: no growth to date - Severe PVD: Cardiology consulted. Recommendations Osteomyelitis / gangrene right second toe s/p amputation: Completed 7 days of zosyn/vanco postoperatively. Continue to monitor for signs of infection. Continue with wound care per surgery team. Follow up with podiatry/wound care as outpatient Strict blood glucose control Severe PVD: See cardiology note for further recommendations Case Discussed with Felipe Keller
--- NOTE | 2023-10-05 11:17 | P.PN ---
Subjective Date of Service: 10/05/23 Chief Complaint: RIGHT 2ND TOE ISCHEMIA Pt is resting comfortably in bed. Pt is POD #6, I&D. Will do angiography today. Pt has completed antibiotics. No other complaints. Review of Systems Unremarkable General: Unremarkable Eyes: Unremarkable ENT: Unremarkable Respiratory: Unremarkable Cardiovascular: Unremarkable Gastrointestinal: Unremarkable Genitourinary: Unremarkable Musculoskeletal: Unremarkable Integumentary: Unremarkable Neurological: Unremarkable Lymphatics: Unremarkable Physical Examination - Vital Signs Temperature: 97.2 F Blood Pressure: 134/61 Pulse: 60 Respirations: 16 Pulse Ox (%): 95 - Physical Exam General: Alert, In no apparent distress, Oriented x3 HEENT: Atraumatic, Normocephalic Neck: Supple, 2+ carotid pulse no bruit Respiratory: Clear to auscultation bilaterally Cardiovascular: No edema, Normal pulses, Regular rate/rhythm Capillary refill: <2 Seconds Gastrointestinal: Normal bowel sounds, Soft and benign, Non-distended Musculoskeletal: No clubbing, No swelling Integumentary: No rashes, No breakdown Neurological: Normal gait, Normal speech, Normal strength at 5/5 x4 extr Lymphatics: No axilla or inguinal lymphadenopathy - Studies Medications List Reviewed: Yes Assessment And Plan - Plan Peripheral Arterial Disease complicated by Right 2nd Toe Osteomyelitis/Dry Gangrene: Pt completed antibiotics. Cardiology is following. Pt will do angiography today, 10/05/23. Podiatry did I&D on - 09/27: Right second digit amputation with incision and drainage of foot - 09/29: Right foot incision and drainage with closure of wound via advancement flap and bone biopsy of the second metatarsal. Right foot x-ray = "soft tissue swelling and gas centered around the second digit as above concerning for cellulitis. No adjacent osseous lucencies are observed, however MRI of the foot would provide improved sensitivity for osteomyelitis evaluation if clinically indicated. Osseous remodeling with well corticated margins at the tuft of the first digit distal phalanx, could be of chronic nature" Right foot MRI = "signal abnormality suggestive of osteomyelitis involving the second digit middle and proximal phalanges. Central shaft and base of second metatarsal signal abnormalities, could also relate to osteomyelitis, however may relate to a healing fracture given linear T1 hypointense signal at the base. Soft tissue abnormalities as above. No findings to suggest an abnormal fluid collection on noncontrast MRI." Right arterial Doppler = "significant peripheral vascular disease with segmental occlusion along the proximal to mid right SFA. More distally there is reconstitution with monophasic flow" CT angiogram right lower extremity = "long segment of occlusion of the right superficial femoral artery at its origin with reconstitution secondary to collaterals at the level of the mid to distal third of the femur. Multifocal atherosclerotic luminal narrowing as above, including caliber diminution of the right peroneal artery distal to the level of the lateral malleolus. Dorsalis pe dis artery is patent." Toe Biopsy (09/27) - "gangrenous necrosis. Skin at resection margin with gangrenous necrosis. Suggestive of osteomyelitis, recommend clinical and radiographic correlation" Repeat biopsy (09/29) = "Consistent with acute osteomyelitis" HLD: Continue aspirin and rosuvastatin Hypertension: Continue losartan Type II Diabetes Mellitus: Continue accuchek, SSI and ADA diet Disposition: Pending hospital course and ID and Cardiology recs. Physician Review: Patient Assessed, Agree with Above Assessment and Plan
[2023-10-05] MEDS ORDERED: NA CHLORIDE 0.9% 500 ML ONE (12:30)
[2023-10-05] MEDS ORDERED: HEPA 1000U/500MLS 2,000 UNIT/1,000 ML BAG IV ONE (12:43)
[2023-10-05] MEDS ORDERED: LIDOCAINE 1% 20 ML MDV ONE (12:44)
[2023-10-05] MEDS ORDERED: MIDAZOLAM HCL 2 MG/2 ML INJ ONE (12:46)
[2023-10-05] MEDS ORDERED: FENTANYL CITR 100 MCG/2 ML ONE (12:46)
[2023-10-05] MEDS ORDERED: ATROPINE SULF 1 MG/10 ML SYR IV ONE (12:47)
[2023-10-05] MEDS ORDERED: TICAGRELOR 90 MG TABLET PO ONE (12:47)
[2023-10-05] MEDS ORDERED: CLOPIDOGREL 75 MG TABLET ONE (12:48)
[2023-10-05] MEDS ORDERED: ASPIRIN 325 MG TAB ONE (12:48)
[2023-10-05] MEDS ORDERED: HEPARIN 10,000 UNIT/10 ML VIAL IV ONE (12:48)
[2023-10-05] MEDS ORDERED: NITROGLYCERIN/D5W 25 MG/250 ML BTL IV ONE (12:49)
[2023-10-05] MEDS ORDERED: HEPARIN 5000 UNIT/ML 1 ML VIAL ONE (14:11)
[2023-10-05] MEDS ORDERED: VERAPAMIL HCL 10 MG/4 ML VIAL IV ONE (14:11)
[2023-10-05] MEDS: ROSUVASTATIN 10 MG TAB PO SCH (22:12)
[2023-10-06 01:10] VITALS: O2SAT 96
[2023-10-06] MEDS: INSULIN REGULAR (HUMAN) 100 UNIT/ML SQ SCH ×4 (07:30→21:00)
[2023-10-06] MEDS: INSULIN GLARGINE 100 UNIT/ML SQ SCH (08:45)
[2023-10-06] MEDS: INSULIN LISPRO 100 UNIT/ML SQ SCH ×3 (08:45→16:38)
[2023-10-06] MEDS: GABAPENTIN 400 MG CAP PO SCH ×3 (08:46→21:00)
[2023-10-06] MEDS: ASPIRIN EC 81 MG TAB PO SCH (08:46)
[2023-10-06] MEDS: LOSARTAN POTASSIUM 50 MG TABLET PO SCH (08:46)
--- NOTE | 2023-10-06 10:04 | P.PN ---
Date of Service: 10/06/23 Chief Complaint: RIGHT 2ND TOE ISCHEMIA Subjective: Plan of care discussed with patient at bedside. PICC line placement pending. Physical Examination Temp Pulse Resp BP Pulse Ox 97.0 F 70 12 107/50 L 95 10/06/23 08:00 10/06/23 08:00 10/06/23 08:00 10/06/23 08:00 10/06/23 08:00 Laboratory Data - Reviewed Microbiology Data - Reviewed Imagings Data: -MRI right foot 09/27: "signal abnormality suggestive of osteomyelitis involving the second digit middle and proximal phalanges. Central shaft and base of second metatarsal signal abnormalities, could also relate to osteomyelitis, however may relate to a healing fracture given linear T1 hypointense signal at the base. Soft tissue abnormalities as above. No findings to suggest an abnormal fluid collection on noncontrast MRI." - Right arterial Doppler 09/26:"significant peripheral vascular disease with segmental occlusion along the proximal to mid right SFA. More distally there is reconstitution with monophasic flow" Medications List: Reviewed Assessment and Plan Problem List Wet gangrene right second toe Diabetes Mellitus type II Hypertension Hyperlipidemia Wet Gangrene right second toe - Underwent right second digit amputation with incision and drainage of foot on 09/[address] Briseno. - Right foot incision and drainage with closure of wound via advancement flap on 09/29. Bone biopsy sent. - Bone biopsy 09/29: acute osteomyelitis. - On Vancomycin 09/27 - Wound culture: no growth to date Severe PVD: See cardiology note for further recommendations. Recommendations Osteomyelitis / gangrene right second toe s/p amputation: bone biopsy 09/29 with acute osteomyelitis. gram stain with gram positive cocci, culture without growth. Patient will require 6 weeks total of IV anitbiotics (09/27 to 11/08). Due to comorbidities such as diabetes mellitus, obesity, PVD, we recommend Rocephin 2g IV q24h and Linezolid 600mg IV q12h. Patient refuses to continue with Vancomycin IV at home. Pending home health arrangements. CM/SS notified. PICC line placement pending. Continue with wound care per surgery team. Follow up with podiatry/wound care as outpatient Strict blood glucose control Case Discussed with Juve Keller.
--- NOTE | 2023-10-06 10:43 | P.PN ---
Subjective Date of Service: 10/06/23 Chief Complaint: RIGHT 2ND TOE ISCHEMIA Pt is resting comfortably in bed. Pt is POD #7, I&D. Pt did angiography on 10/05/23. She needs to see a vascular surgeon. Pt will need iv vancomycin for 6 weeks. No other complaints. Review of Systems Unremarkable General: Unremarkable Eyes: Unremarkable ENT: Unremarkable Respiratory: Unremarkable Cardiovascular: Unremarkable Gastrointestinal: Unremarkable Genitourinary: Unremarkable Musculoskeletal: Unremarkable Integumentary: Other (right foot ostemyelitis) Neurological: Unremarkable Lymphatics: Unremarkable Physical Examination - Vital Signs Temperature: 97.0 F Blood Pressure: 107/50 Pulse: 70 Respirations: 12 Pulse Ox (%): 95 - Physical Exam General: Alert, In no apparent distress, Oriented x3 HEENT: Atraumatic, Normocephalic, PERRLA Neck: Supple, 2+ carotid pulse no bruit Respiratory: Clear to auscultation bilaterally, Normal air movement Cardiovascular: No edema, Normal pulses Capillary refill: <2 Seconds Gastrointestinal: Normal bowel sounds, Soft and benign, Non-distended Musculoskeletal: No clubbing, No swelling Integumentary: No rashes, Other (right foot osteomyelitis) Neurological: Normal gait, Normal speech, Normal strength at 5/5 x4 extr Lymphatics: No axilla or inguinal lymphadenopathy - Studies Medications List Reviewed: Yes Assessment And Plan - Plan Peripheral Arterial Disease complicated by Right 2nd Toe Osteomyelitis/Dry Gangrene: Pt will dc with iv vancomycin for 6 weeks (09/27 to 11/08). Will place PICC line. Gram stain with gram positive cocci, culture without growth. Cardiology is following. Pt did angiography on 10/05/23. She needs to see a vascular surgeon in [place]. Podiatry did I&D on - 09/27: Right second digit amputation with incision and drainage of foot - 09/29: Right foot incision and drainage with closure of wound via advancement flap and bone biopsy of the second metatarsal. Right foot x-ray = "soft tissue swelling and gas centered around the second digit as above concerning for cellulitis. No adjacent osseous lucencies are observed, however MRI of the foot would provide improved sensitivity for osteomyelitis evaluation if clinically indicated. Osseous remodeling with well corticated margins at the tuft of the first digit distal phalanx, could be of chronic nature" Right foot MRI = "signal abnormality suggestive of osteomyelitis involving the second digit middle and proximal phalanges. Central shaft and base of second metatarsal signal abnormalities, could also relate to osteomyelitis, however may relate to a healing fracture given linear T1 hypointense signal at the base. Soft tissue abnormalities as above. No findings to suggest an abnormal fluid collection on noncontrast MRI." Right arterial Doppler = "significant peripheral vascular disease with segmental occlusion along the proximal to mid right SFA. More distally there is reconstitution with monophasic flow" CT angiogram right lower extremity = "long segment of occlusion of the right superficial femoral artery at its origin with reconstitution secondary to collaterals at the level of the mid to distal third of the femur. Multifocal atherosclerotic luminal narrowing as above, including caliber diminution of the right peroneal artery distal to the level of the lateral malleolus. Dorsalis pedis artery is patent." Toe Biopsy (09/27) - "gangrenous necrosis. Skin at resection margin with gangrenous necrosis. Suggestive of osteomyelitis, recommend clinical and radiographic correlation" Repeat biopsy (09/29) = "Consistent with acute osteomyelitis" HLD: Continue aspirin and rosuvastatin Hypertension: Continue losartan Type II Diabetes Mellitus: Continue accuchek, SSI and ADA diet Disposition: Pending hospital course and ID and Cardiology recs. Physician Review: Patient Assessed, Agree with Above Assessment and Plan
[2023-10-06] MEDS ORDERED: VANCOMYCIN 2 GM in NA CHLORIDE 0.9% 500 ML IVPB SCH (11:00)
[2023-10-06] MEDS ORDERED: VANCOMYCIN 1.75 GM in NA CHLORIDE 0.9% 500 ML IVPB SCH (11:00)
[2023-10-06] MEDS: Mupirocin NASAL 2 APPL/1 GM TUBE NAS SCH ×2 (11:41→21:01)
--- NOTE | 2023-10-06 12:36 | P.DS ---
Admission Date: 09/26/23 Discharge Date: 10/06/23 Disposition: ROUTINE DISCHARGE Discharge Condition: GOOD Reason for Admission: RIGHT 2ND TOE ISCHEMIA Brief History of Present Illness: Patient is a 53-year-old female who came to the hospital with gangrenous 2nd toe. Patient still have been black for about 2-3 days. She had significant erythema about 2 weeks ago. She was started on antibiotics. It was not getting any better. She was not sure exactly why was discolored but since it was getting worse she came into the ER. She said this been bluish black for about 2-3 days. Patient may most likely had an embolic phenomenon. We will go ahead and put her on heparin. Started on antibiotics. Will consult Podiatry. Cardiology consultation as well. Hospital Course: Pt is a 53 yo female who presented with right foot infection. Imaging studies showed osteomyelitis. We gave iv antibiotics. Cardiology did angiography and recommended outpt follow up with a vascular surgeon for PAD. ID recommended iv rocephin 2mg iv dailya nd linezolid 600mg po BID for 5 weeks. We continued home med for other chronic medical problems. Pt was in NAD prior to discharge. See below for more details. Peripheral Arterial Disease complicated by Right 2nd Toe Osteomyelitis/Dry Gangrene: Pt will dc with iv vancomycin for 6 weeks (09/27 to 11/08). Will place PICC line. Gram stain with gram positive cocci, culture without growth. Cardiology is following. Pt did angiography on 10/05/23. She needs to see a vascular surgeon in [place]. Podiatry did I&D on - 09/27: Right second digit amputation with incision and dr gray of foot - 09/29: Right foot incision and drainage with closure of wound via advancement flap and bone biopsy of the second metatarsal. Right foot x-ray = "soft tissue swelling and gas centered around the second digit as above concerning for cellulitis. No adjacent osseous lucencies are observed, however MRI of the foot would provide improved sensitivity for osteomyelitis evaluation if clinically indicated. Osseous remodeling with well corticated margins at the tuft of the first digit distal phalanx, could be of chronic nature" Right foot MRI = "signal abnormality suggestive of osteomyelitis involving the second digit middle and proximal phalanges. Central shaft and base of second metatarsal signal abnormalities, could also relate to osteomyelitis, however may relate to a healing fracture given linear T1 hypointense signal at the base. Soft tissue abnormalities as above. No findings to suggest an abnormal fluid collection on noncontrast MRI." Right arterial Doppler = "significant peripheral vascular disease with segmental occlusion along the proximal to mid right SFA. More distally there is reconstitution with monophasic flow" CT angiogram right lower extremity = "long segment of occlusion of the right superficial femoral artery at its origin with reconstitution secondary to collaterals at the level of the mid to distal third of the femur. Multifocal atherosclerotic luminal narrowing as above, including caliber diminution of the right peroneal artery distal to the level of the lateral malleolus. Dorsalis pedis artery is patent." Toe Biopsy (09/27) - "gangrenous necrosis. Skin at resection margin with gangrenous necrosis. Suggestive of osteomyelitis, recommend clinical and radiographic correlation" Repeat biopsy (09/29) = "Consistent with acute osteomyelitis" HLD: Continue aspirin and rosuvastatin Hypertension: Continue losartan Type II Diabetes Mellitus: Continue accuchek, SSI and ADA diet Disposition: Pending hospital course and ID and Cardiology recs. Vital Signs/Physical Exam: Temp Pulse Resp BP Pulse Ox 97.0 F 70 12 107/50 L 95 10/06/23 10:48 10/06/23 10:48 10/06/23 10:48 10/06/23 10:48 10/06/23 10:48 Laboratory Data at Discharge: WBC 10.10 thou/uL (4.3-10.9) 10/05/23 01:41 Hgb 11.7 g/dL (12.0-15.0) L 10/05/23 01:41 Hct 33.9 % (36.0-45.0) L 10/05/23 01:41 Plt Count 260 thou/uL (152-406) 10/05/23 01:41 PT 13.8 SECONDS (9.5-12.5) H 09/26/23 22:35 INR 1.26 09/26/23 22:35 APTT 58.9 SECONDS (24.3-36.9) H 09/29/23 02:35 Sodium 140 mEq/L (136-145) 10/05/23 01:41 Potassium 3.8 mEq/L (3.5-5.1) 10/05/23 01:41 BUN 9 mg/dL (7-18) 10/05/23 01:41 Creatinine 0.72 mg/dL (0.55-1.02) 10/05/23 01:41 Glucose 181 mg/dL (74-106) H 10/05/23 01:41 Phosphorus 3.4 mg/dL (2.5-4.9) 10/03/23 05:50 Magnesium 1.8 mg/dL (1.6-2.4) 10/03/23 05:50 Total Bilirubin 0.3 mg/dL (0.2-1.0) 09/30/23 02:14 AST < 4 U/L (15-37) L 09/30/23 02:14 ALT 13 U/L (13-56) 09/30/23 02:14 Alkaline Phosphatase 72 U/L (45-117) 09/30/23 02:14 Triglycerides 144 mg/dL (<150) 09/27/23 06:54 Cholesterol 107 mg/dL (<200) 09/27/23 06:54 HDL Cholesterol 31 mg/dL (40-60) L 09/27/23 06:54 Cholesterol/HDL Ratio 3.45 09/27/23 06:54 Home Medications: Aspirin 81 mg PO BEDTIME 06/23/23 Gabapentin 400 mg PO TID 06/23/23 Glimepiride 4 mg PO BID 06/23/23 Losartan Potassium 50 mg PO DAILY 06/23/23 Metformin HCl 500 mg PO BID 06/23/23 [place]-3/Dha/Epa/Fish Oil [Fish Oil 1,000 mg Softgel] 1 each PO DAILY 06/23/23 Rosuvastatin Calcium 20 mg PO BEDTIME 06/23/23 Calcium Citrate/Vitamin D3 [Calcium Citrate - Vit D Tablet] 1 each PO DAILY 09/27/23 Cholecalciferol (Vitamin D3) [Vitamin D 5,000 IU Cap*] 5,000 unit PO DAILY 09/27/23 Magnesium Oxide [Magnesium] 250 mg PO DAILY 09/27/23 Omeprazole 20 mg PO DAILY 09/27/23 Zinc Amino Acid Chelate [Zinc] 50 mg PO DAILY 09/27/23 Linezolid [Zyvox*] 600 mg PO BID 35 Days #70 tab 10/06/23 New Medications: Linezolid [Zyvox*] 600 mg PO BID 35 Days #70 tab Physician Discharge Instructions: Continue ad mitch activity. Take rocephin 2gm iv daily and linezolid 600mg po BID for 5 weeks. Follow up with PCP and ID within 2 weeks. Followup: Ross Roberts MD [ACTIVE - CAN ADMIT] -
--- NOTE | 2023-10-06 14:42 | RAD REPORT ---
EXAM DESCRIPTION: [facility] Single View10/06/2023 2:36 pm CLINICAL HISTORY: post picc placement COMPARISON: No comparisons TECHNIQUE: Portable AP view of the chest. FINDINGS: Left arm PICC in satisfactory position with catheter tip projecting at the distal SVC. The lungs are clear. No pneumothorax or effusion. The cardiomediastinal contours are unremarkable. IMPRESSION: No acute cardiopulmonary process. Satisfactory position of the left arm PICC.
[2023-10-06] MEDS: CEFTRIAXONE 2,000 MG in NA CHLORIDE 0.9% 100 ML IV SCH (15:52)
[2023-10-06] MEDS: LINEZOLID 600 MG IVPB 600 MG/300 ML BAG IV SCH (20:59)
[2023-10-06] MEDS: ROSUVASTATIN 10 MG TAB PO SCH (21:00)
[2023-10-06] MEDS ORDERED: VANCOMYCIN 1.5 GM in NA CHLORIDE 0.9% 500 ML IVPB SCH (21:00)
[2023-10-07] MEDS: INSULIN REGULAR (HUMAN) 100 UNIT/ML SQ SCH ×2 (07:28→12:06)
[2023-10-07] MEDS: GABAPENTIN 400 MG CAP PO SCH (07:46)
[2023-10-07] MEDS: LOSARTAN POTASSIUM 50 MG TABLET PO SCH (07:46)
[2023-10-07] MEDS: ASPIRIN EC 81 MG TAB PO SCH (07:46)
[2023-10-07] MEDS: Mupirocin NASAL 2 APPL/1 GM TUBE NAS SCH (07:46)
[2023-10-07] MEDS: CEFTRIAXONE 2,000 MG in NA CHLORIDE 0.9% 100 ML IV SCH (07:46)
[2023-10-07] MEDS: INSULIN GLARGINE 100 UNIT/ML SQ SCH (07:47)
[2023-10-07] MEDS: INSULIN LISPRO 100 UNIT/ML SQ SCH ×2 (07:47→12:06)
[2023-10-07] MEDS: LINEZOLID 600 MG IVPB 600 MG/300 ML BAG IV SCH (08:30)
--- NOTE | 2023-10-07 09:13 | P.PN ---
Date of Service: 10/07/23 Chief Complaint: RIGHT 2ND TOE ISCHEMIA Subjective: Improving. No new or worsening complaints. No acute events overnight. PICC line placed 10/06. Home health arrangements pending. CM/SS following. Physical Examination Temp Pulse Resp BP Pulse Ox 97.2 F 66 14 108/53 L 97 10/07/23 04:00 10/07/23 04:00 10/07/23 04:00 10/07/23 04:00 10/07/23 04:00 Laboratory Data - Reviewed Microbiology Data - Reviewed Imagings Data: -MRI right foot 09/27: "signal abnormality suggestive of osteomyelitis involving the second digit middle and proximal phalanges. Central shaft and base of second metatarsal signal abnormalities, could also relate to osteomyelitis, however may relate to a healing fracture given linear T1 hypointense signal at the base. Soft tissue abnormalities as above. No findings to suggest an abnormal fluid collection on noncontrast MRI." - Right arterial Doppler 09/26:"significant peripheral vascular disease with segmental occlusion along the proximal to mid right SFA. More distally there is reconstitution with monophasic flow" Medications List: - Reviewed Assessment and Plan Problem List Wet gangrene right second toe Diabetes Mellitus type II Hypertension Hyperlipidemia Wet Gangrene right second toe - Underwent right second digit amputation with incision and drainage of foot on 09/[address] Briseno. - Right foot incision and drainage with closure of wound via advancement flap on 09/29. Bone biopsy sent. - Bone biopsy 09/29: acute osteomyelitis. - On Vancomycin 09/27 - Wound culture: no growth to date Severe PVD: See cardiology note for further recommendations. Recommendations - Osteomyelitis / gangrene right second toe s/p amputation: bone biopsy 09/29 with acute osteomyelitis. gram stain with gram positive cocci, culture without growth. Patient will require 6 weeks total of IV antibiotics (09/27 to 11/08). Patient refuses to continue with Vancomycin IV at home. Due to comorbidities such as diabetes mellitus, obesity, PVD, we recommend Rocephin 2g IV q24h and Linezolid 600mg IV q12h. - Pending home health arrangements. CM/SS notified. Continue with wound care per surgery team. Follow up with podiatry/wound care as outpatient Strict blood glucose control Case Discussed with Felipe Keller
--- NOTE | 2023-10-07 11:28 | P.PN ---
Subjective Date of Service: 10/07/23 Chief Complaint: RIGHT 2ND TOE ISCHEMIA Pt is resting comfortably in bed. Pt is POD #8, I&D. Pt did angiography on 10/05/23. She needs to see a vascular surgeon. Pt needs iv abx for 6 weeks. No other complaints. Review of Systems Unremarkable General: Unremarkable Eyes: Unremarkable ENT: Unremarkable Respiratory: Unremarkable Cardiovascular: Unremarkable Gastrointestinal: Unremarkable Genitourinary: Unremarkable Musculoskeletal: Unremarkable Integumentary: Unremarkable Neurological: Unremarkable Lymphatics: Unremarkable Physical Examination - Vital Signs Temperature: 97.3 F Blood Pressure: 116/59 Pulse: 68 Respirations: 16 Pulse Ox (%): 96 - Physical Exam General: Alert, In no apparent distress, Oriented x3 HEENT: Atraumatic, Normocephalic, PERRLA Neck: Supple, 2+ carotid pulse no bruit Respiratory: Clear to auscultation bilaterally, Normal air movement Cardiovascular: No edema, Normal pulses, Regular rate/rhythm, Normal S1 S2 Capillary refill: <2 Seconds Gastrointestinal: Normal bowel sounds, Soft and benign, Non-distended Musculoskeletal: No clubbing, No swelling Integumentary: No rashes, No breakdown Neurological: Normal gait, Normal speech, Normal strength at 5/5 x4 extr Lymphatics: No axilla or inguinal lymphadenopathy - Studies Medications List Reviewed: Yes Assessment And Plan - Plan Peripheral Arterial Disease complicated by Right 2nd Toe Osteomyelitis/Dry Gangrene: Pt will dc with Rocephin 2g IV q24h and Linezolid 600mg IV q12h for 6 weeks (09/27 to 11/08). Will place PICC line. Gram stain with gram positive cocci, culture without growth. Cardiology is following. Pt did angiography on 10/05/23. She needs to see a vascular surgeon in [place]. Podiatry did I&D on - 09/27: Right second digit amputation with incision and drainage of foot - 09/29: Right foot incision and drainage with closure of wound via advancement flap and bone biopsy of the second metatarsal. Right foot x-ray = "soft tissue swelling and gas centered around the second digit as above concerning for cellulitis. No adjacent osseous lucencies are observed, however MRI of the foot would provide improved sensitivity for osteomyelitis evaluation if clinically indicated. Osseous remodeling with well corticated margins at the tuft of the first digit distal phalanx, could be of chronic nature" Right foot MRI = "signal abnormality suggestive of osteomyelitis involving the second digit middle and proximal phalanges. Central shaft and base of second metatarsal signal abnormalities, could also relate to osteomyelitis, however may relate to a healing fracture given linear T1 hypointense signal at the base. Soft tissue abnormalities as above. No findings to suggest an abnormal fluid collection on noncontrast MRI." Right arterial Doppler = "significant peripheral vascular disease with segmental occlusion along the proximal to mid right SFA. More distally there is reconstitution with monophasic flow" CT angiogram right lower extremity = "long segment of occlusion of the right superficial femoral artery at its origin with reconstitution secondary to collaterals at the level of the mid to distal third of the femur. Multifocal atherosclerotic luminal narrowing as above, including caliber diminution of the right peroneal artery distal to the level of the lateral malleolus. Dorsalis pedis artery is patent." Toe Biopsy (09/27) - "gangrenous necrosis. Skin at resection margin with gangrenous necrosis. Suggestive of osteomyelitis, recommend clinical and radiographic correlation" Repeat biopsy (09/29) = "Consistent with acute osteomyelitis" HLD: Continue aspirin and rosuvastatin Hypertension: Continue losartan Type II Diabetes Mellitus: Continue accuchek, SSI and ADA diet Disposition: Will dc once IV abx infusion is set up. Physician Review: Patient Assessed, Agree with Above Assessment and Plan
[2023-10-07 15:01] VITALS: BP 128/60; TEMP 97.6
--- NOTE | 2023-10-07 17:21 | P.DS ---
Admission Date: 09/26/23 Discharge Date: 10/07/23 Disposition: DC HOME/HOME HEALTH CARE Discharge Condition: GOOD Reason for Admission: RIGHT 2ND TOE ISCHEMIA Brief History of Present Illness: Patient is a 53-year-old female who came to the hospital with gangrenous 2nd toe. Patient still have been black for about 2-3 days. She had significant erythema about 2 weeks ago. She was started on antibiotics. It was not getting any better. She was not sure exactly why was discolored but since it was getting worse she came into the ER. She said this been bluish black for about 2-3 days. Patient may most likely had an embolic phenomenon. We will go ahead and put her on heparin. Started on antibiotics. Will consult Podiatry. Cardiology consultation as well. Hospital Course: Pt is a 53 yo female who presented with right foot infection. Imaging studies showed osteomyelitis. We gave iv antibiotics. Cardiology did angiography and recommended outpt follow up with a vascular surgeon for PAD. ID recommended iv rocephin 2mg iv dailya nd linezolid 600mg po BID for 5 weeks. We continued home med for other chronic medical problems. Her initial discharge order on 10/06/23 was delayed because telephonic case manager was setting up her outpatient iv antibiotics infusion. Pt was in NAD prior to discharge. See below for more details. Peripheral Arterial Disease complicated by Right 2nd Toe Osteomyelitis/Dry Gang red: Pt will dc with iv vancomycin for 6 weeks (09/27 to 11/08). Will place PICC line. Gram stain with gram positive cocci, culture without growth. Cardiology is following. Pt did angiography on 10/05/23. She needs to see a vascular surgeon in [place]. Podiatry did I&D on - 09/27: Right second digit amputation with incision and drainage of foot - 09/29: Right foot incision and drainage with closure of wound via advancement flap and bone biopsy of the second metatarsal. Right foot x-ray = "soft tissue swelling and gas centered around the second digit as above concerning for cellulitis. No adjacent osseous lucencies are observed, however MRI of the foot would provide improved sensitivity for osteomyelitis evaluation if clinically indicated. Osseous remodeling with well corticated margins at the tuft of the first digit distal phalanx, could be of chronic nature" Right foot MRI = "signal abnormality suggestive of osteomyelitis involving the second digit middle and proximal phalanges. Central shaft and base of second metatarsal signal abnormalities, could also relate to osteomyelitis, however may relate to a healing fracture given linear T1 hypointense signal at the base. So ft tissue abnormalities as above. No findings to suggest an abnormal fluid collection on noncontrast MRI." Right arterial Doppler = "significant peripheral vascular disease with segmental occlusion along the proximal to mid right SFA. More distally there is reconstitution with monophasic flow" CT angiogram right lower extremity = "long segment of occlusion of the right superficial femoral artery at its origin with reconstitution secondary to collaterals at the level of the mid to distal third of the femur. Multifocal atherosclerotic luminal narrowing as above, including caliber diminution of the right peroneal artery distal to the level of the lateral malleolus. Dorsalis pedis artery is patent." Toe Biopsy (09/27) - "gangrenous necrosis. Skin at resection margin with gangrenous necrosis. Suggestive of osteomyelitis, recommend clinical and radiographic correlation" Repeat biopsy (09/29) = "Consistent with acute osteomyelitis" HLD: Continue aspirin and rosuvastatin Hypertension: Continue losartan Type II Diabetes Mellitus: Continue accuchek, SSI and ADA diet Disposition: Pending hospital course and ID and Cardiology recs. Vital Signs/Physical Exam: Temp Pulse Resp BP Pulse Ox 97.6 F 77 16 128/60 97 10/07/23 12:00 10/07/23 12:00 10/07/23 12:00 10/07/23 12:00 10/07/23 12:00 Laboratory Data at Discharge: WBC 10.10 thou/uL (4.3-10.9) 10/05/23 01:41 Hgb 11.7 g/dL (12.0-15.0) L 10/05/23 01:41 Hct 33.9 % (36.0-45.0) L 10/05/23 01:41 Plt Count 260 thou/uL (152-406) 10/05/23 01:41 PT 13.8 SECONDS (9.5-12.5) H 09/26/23 22:35 INR 1.26 09/26/23 22:35 APTT 58.9 SECONDS (24.3-36.9) H 09/29/23 02:35 Sodium 140 mEq/L (136-145) 10/05/23 01:41 Potassium 3.8 mEq/L (3.5-5.1) 10/05/23 01:41 BUN 9 mg/dL (7-18) 10/05/23 01:41 Creatinine 0.72 mg/dL (0.55-1.02) 10/05/23 01:41 Glucose 181 mg/dL (74-106) H 10/05/23 01:41 Phosphorus 3.4 mg/dL (2.5-4.9) 10/03/23 05:50 Magnesium 1.8 mg/dL (1.6-2.4) 10/03/23 05:50 Total Bilirubin 0.3 mg/dL (0.2-1.0) 09/30/23 02:14 AST < 4 U/L (15-37) L 09/30/23 02:14 ALT 13 U/L (13-56) 09/30/23 02:14 Alkaline Phosphatase 72 U/L (45-117) 09/30/23 02:14 Triglycerides 144 mg/dL (<150) 09/27/23 06:54 Cholesterol 107 mg/dL (<200) 09/27/23 06:54 HDL Cholesterol 31 mg/dL (40-60) L 09/27/23 06:54 Cholesterol/HDL Ratio 3.45 09/27/23 06:54 Home Medications: Aspirin 81 mg PO BEDTIME 06/23/23 Gabapentin 400 mg PO TID 06/23/23 Glimepiride 4 mg PO BID 06/23/23 Losartan Potassium 50 mg PO DAILY 06/23/23 Metformin HCl 500 mg PO BID 06/23/23 Colby-3/Dha/Epa/Fish Oil [Fish Oil 1,000 mg Softgel] 1 each PO DAILY 06/23/23 Rosuvastatin Calcium 20 mg PO BEDTIME 06/23/23 Calcium Citrate/Vitamin D3 [Calcium Citrate - Vit D Tablet] 1 each PO DAILY 09/27/23 Cholecalciferol (Vitamin D3) [Vitamin D 5,000 IU Cap*] 5,000 unit PO DAILY 09/27/23 Magnesium Oxide [Magnesium] 250 mg PO DAILY 09/27/23 Omeprazole 20 mg PO DAILY 09/27/23 Zinc Amino Acid Chelate [Zinc] 50 mg PO DAILY 09/27/23 Linezolid [Zyvox*] 600 mg PO BID 35 Days #70 tab 10/06/23 New Medications: Linezolid [Zyvox*] 600 mg PO BID 35 Days #70 tab Physician Discharge Instructions: Continue ad mitch activity. Take rocephin 2gm iv daily and linezolid 600mg IV BID for 5 weeks. Follow up with PCP and ID within 2 weeks. Follow up with Vascular surgeon in [place] for peripheral arterial disease. Diet: AHA Activity: Ad mitch Followup: Ross Roberts MD [ACTIVE - CAN ADMIT] - 1-2 Weeks
== END 2023-10-07 15:50 | disposition home health service (06) | DRG 240 ==
LOC: ER 11:31 → ERHOLD 18:55 → 2ND 09-27 00:13
PROVIDERS: ADMIT Hospitalist; ATTEND Hospitalist
PROC: 0Y6M0ZB Detachment at Right Foot, Partial 2nd Ray, Open Approach (ICD-10-PCS; principal; 2023-09-27 13:00)
PROC: B40G1ZZ Plain Radiography of Left Lower Extremity Arteries using Low Osmolar Contrast (ICD-10-PCS; 2023-10-05)
PROC: B40F1ZZ Plain Radiography of Right Lower Extremity Arteries using Low Osmolar Contrast (ICD-10-PCS; 2023-10-05)
PROC: 02HV33Z Insertion of Infusion Device into Superior Vena Cava, Percutaneous Approach (ICD-10-PCS; 2023-10-06)
PROC: 3E04329 Introduction of Other Anti-infective into Central Vein, Percutaneous Approach (ICD-10-PCS; 2023-10-06)
DX: E11.52 Type 2 diabetes mellitus with diabetic peripheral angiopathy with gangrene (principal); I96 Gangrene, not elsewhere classified; M86.171 Other acute osteomyelitis, right ankle and foot; L03.115 Cellulitis of right lower limb; L02.611 Cutaneous abscess of right foot; I10 Essential (primary) hypertension; E78.5 Hyperlipidemia, unspecified; E11.69 Type 2 diabetes mellitus with other specified complication; E78.00 Pure hypercholesterolemia, unspecified; F17.210 Nicotine dependence, cigarettes, uncomplicated
CPT/HCPCS: 36200; 36245; 36246; 36415; 71045; 73706; 76937; 80048; 80053; 80061; 80076; 80202; 82947; 83735; 84100; 84145; 85014; 85018; 85025; 85610; 85730; 87070; 87075; 87205; 88304; 88305; 88311; 93306; 93926; 96365; 96366; 96367; 99152; 99153; 99285; C1893; J0461; J0692; J0696; J1644; J1815; J2001; J2020; J2250; J2405; J2543; J2704; J3010; J3475; J7030; J7040; J7050; Q9967